=== PATIENT | male | born 1965 | race Hispanic/Latino ===

== ENCOUNTER 2020-05-09 23:52 | Inpatient (IN) | payer MEDICARE, OTHER ==
[~2020-05-09] VITALS: Ht 177.8 cm; Wt 72.6 kg
[2020-05-10] VITALS (11 sets, daily range): BP systolic 84–112; BP diastolic 60–79
[2020-05-10] MEDS ORDERED: CEFTRIAXONE SOD 1 GM/NS 50 ML 50 ML IV ONE (00:15)
[2020-05-10] MEDS ORDERED: SODIUM CHLORIDE 0.9% 500ML 500 ML IV ONE (00:15)
[2020-05-10] MEDS ORDERED: ACETAMINOPHEN 650 MG SUPP PR ONE (00:15)
[2020-05-10 00:39] LABS: BASOPHILS # (AUTO) 0.1 (0.0-0.1); BASOPHILS % 0.4 % (0.0-1.0); EOSINOPHILS % 0.2 % (0.0-6.0); HEMATOCRIT 27.8 % (38.2-49.6); HEMOGLOBIN 8.4 g/dL (14.0-18.0); LYMPHOCYTES # (AUTO) 1.4 (1.0-3.2); LYMPHOCYTES % 11.7 % (18.0-39.1); MEAN CORPUSCULAR HEMOGLOBIN 26.5 pg (28-32); MEAN CORPUSCULAR HGB CONC 30.2 g/dL (31-35); MEAN CORPUSCULAR VOLUME 87.7 fL (81-99); MONOCYTES # (AUTO) 0.5 (0.2-0.8); MONOCYTES % 4.4 % (4.4-11.3); NEUTROPHILS % 82.7 % (38.7-80.0); PLATELET COUNT 466 x10e3/uL (140-360); RED BLOOD COUNT 3.17 x10e6/uL (4.3-5.7); RED CELL DISTRIBUTION WIDTH 14.3 % (11.7-14.4)
--- NOTE | 2020-05-10 00:51 | Emergency Department Note ---
History of Present Illnes History of Present Illness Chief Complaint: COVID PUI History of Present Illness This is a 55 year old male PRESENTS VIA EMS FROM PRISON FOR RESPIRATORY DISTRESS, PER EMS INITIAL OXYGEN SATURATION 84 % ON ROOM AIR, PT 98 5 ON 15 LITER OXYGEN VIA 100% NONREBREATHER ON ARRIVAL PT ALSO REPORTEDLY TESTED POSITIVE FOR COVID 19 ONE MONTH AGO . 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 Any updates have been documented here. 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) Recent Fever: Yes Clinical Suspicion of Infectio: Yes New/Unexplained Change in Ment: No Other Medical History: Diabetes CVA Hypothyroidism ESRD Chronic Kidney Disease Other Medical History DYALYSIS MUSCLE WASTING CHRONIC WOUNDS Social History Unable to obtain PSH: other (PT NONVERBAL DUE TO PREVIOUS CVA) Review of Systems ROS Narrative Unable to obtain ROS: Unable to obtain due to, other (PT NON VERBAL DUE TO PREVIOUS CVA) Physical Exam Related Data Allergies: Coded Allergies: No Known Allergies (Unverified , 05/10/20) Triage Vital Signs Vital Signs Date Time Temp Pulse Resp B/P (MAP) Pulse Ox O2 Delivery O2 Flow Rate FiO2 05/10/20 00:30 102.1 103 28 93/62 98 Nasal Cannula 3.0 Vital signs reviewed: Yes Physical Exam CONSTITUTIONAL Constitutional: Present other (CONTRACTED, IMACIATED) HENT HENT: Present normocephalic, Present atraumatic, Present oropharynx clear/moist, Present nose normal HENT L/R: Present left ext ear normal, Present right ext ear normal EYES Eyes: Reports PERRL, Reports conjunctivae normal NECK Neck: Present ROM normal PULMONARY Pulmonary: Present effort normal, Present other (DECREASED AT BASES BILATERAL) CARDIOVASCULAR Cardiovascular: Present regular rhythm, Present heart sounds normal, Present capillary refill normal, Present tachycardia (102) GASTROINTESTINAL Abdominal: Present soft, Present nontender, Present bowel sounds normal GENITOURINARY Genitourinary: Present exam deferred SKIN Skin: Present warm, Present dry MUSCULOSKELETAL Musculoskeletal: Present other (LEGS CONTRACTED, ) NEUROLOGICAL Neurological: Present alert, Present other (PT ALERT BUT DOES NOT FOLLOW COMMANDS OR ANSWER QUESTIONS) PSYCHOLOGICAL Psychological: Present other (UNABLE TO EVALUATE) Results Laboratory Laboratory Laboratory Tests Test 05/10/20 00:22 Imaging Imaging results reviewed: Yes Impressions EXAMINATION: CHEST SINGLE (PORTABLE) INDICATION: Short of breath, fever, covid + 1 mo agoi COMPARISON: None FINDINGS: TUBES and LINES: Right IJ central venous catheters, tips in the right atrium. LUNGS: Normal lung volumes. Subtle patchy point local haziness in the lower lungs. PLEURA: No pleural effusion or pneumothorax. HEART AND MEDIASTINUM: The cardiomediastinal silhouette is unremarkable. BONES AND SOFT TISSUES: Degenerative changes in the spine and shoulders. Soft tissues are unremarkable. UPPER ABDOMEN: No free air under the diaphragm. IMPRESSION: Subtle patchy opacities in the lower lungs can be due to atelectasis or pneumonia. Signed by: Stephanie Cunningham DO on 05/10/2020 1:26 AM Dictated By: STEPHANIE CUNNINGHAM DO 5 Transcribed By: ESHA on 05/10/20125 COPY TO: HEATHER REINOSO MD~ Procedures 12 Lead ECG Interpretation ECG Interpretation : ECG: ECG 1 Supervisor Denture Department: Interpreted by ED physician Date: May 10, 2020 Time: 00:15 Rhythm: sinus tachycardia Rate: tachycardia BPM: 105 QRS axis: left ST segments normal: Yes T waves normal: Yes Other findings: no other findings Clinical Impression: non-specific ECG Assessment & Plan Medical Decision Making [facility] PT WITH FEVER, COUGH, SOB FROM PRISON WITH REPORTED HYPOXIA AND TESTING POSITIVE FOR COVID 19 LAST MONTH CBC, CMP, EKG, CARDIAC ENZYMES, BLOOD CULTURE, UA, URINE CULTURE, CXR, COVID 19 ORDERED TO EVAL FOR SEPSIS, LEUKOCYTOSIS, VIRAL PNEUMONIA, UTI, MYOCARDIAL INF ARCTION, ELECTROLYTE ABNORMALITY ROCEPHIN 1 GRAM IV ORDERED NS 500 CC BOLUS IV ORDERED TYLENOL SUPP 650 MG RI ORDERED I SPOKE WITH DR HOYOS, LEFT A MESSAGE FOR DR FERRIS AND DR DIAZ Assessment & Plan Final Impression: (1) COVID-19 (2) UTI (urinary tract infection) (3) Fever (4) Pneumonia Depart Disposition: ADMITTED Last Vital Signs Date Time Temp Pulse Resp B/P (MAP) Pulse Ox O2 Delivery O2 Flow Rate FiO2 05/10/20 00:30 102.1 103 28 93/62 98 Nasal Cannula 3.0 Medications in the ED Sodium Chloride 500 ml @ 0 mls/hr Q0M ONCE IV ; Start 05/10/20 at 00:15; Stop 05/10/20 at 00:16; Status DC Acetaminophen 650 mg ONCE ONCE RI ; Start 05/10/20 at 00:15; Stop 05/10/20 at 00:16; Status UNV Ceftriaxone Sodium 50 ml @ 100 mls/hr ONCE ONCE IV ; Start 05/10/20 at 00:15; Stop 05/10/20 at 00:44; Status UNV HEATHER REINOSO MD May 10, 2020 00:51
[2020-05-10 00:58] LABS: ALBUMIN/GLOBULIN RATIO 0.4 (0.8-2.0); ANION GAP 23.6 mmol/L (8-16); CALCIUM 8.4 mg/dL (8.4-10.2); CREATININE, SERUM 5.1 mg/dL (0.72-1.25); POTASSIUM 4.6 mmol/L (3.5-5.1)
[2020-05-10 01:05] LABS: CREATINE KINASE MB 7.9 ng/mL (0-5.0)
--- NOTE | 2020-05-10 01:29 | Diagnostic Imaging Report ---
EXAMINATION: CHEST SINGLE (PORTABLE) INDICATION: Short of breath, fever, covid + 1 mo agoi COMPARISON: None FINDINGS: TUBES and LINES: Right IJ central venous catheters, tips in the right atrium. LUNGS: Normal lung volumes. Subtle patchy point local haziness in the lower lungs. PLEURA: No pleural effusion or pneumothorax. HEART AND MEDIASTINUM: The cardiomediastinal silhouette is unremarkable. BONES AND SOFT TISSUES: Degenerative changes in the spine and shoulders. Soft tissues are unremarkable. UPPER ABDOMEN: No free air under the diaphragm. IMPRESSION: Subtle patchy opacities in the lower lungs can be due to atelectasis or pneumonia. Signed by: Bairon Cunningham DO on 05/10/2020 1:26 AM
[2020-05-10 01:30] LABS: BILIRUBIN,URINE NEGATIVE (NEGATIVE); CLARITY,URINE CLOUDY (CLEAR); COLOR,URINE YELLOW (YELLOW); KETONES,URINE NEGATIVE (NEGATIVE); LEUKOCYTE ESTERASE ,URINE NEGATIVE (NEGATIVE); NITRITE,URINE NEGATIVE (NEGATIVE); PROTEIN,URINE DIPSTICK >=300 (NEGATIVE); URINE UROBILINOGEN 0.2 mg/dL (0.2 - 1)
[2020-05-10] MEDS ORDERED: AZITHROMYCIN 500MG/NS 250 ML 250 ML IV ONE (01:30)
[2020-05-10 01:38] LABS: AMORPHOUS SEDIMENT,URINE MANY (FEW); BACTERIA,URINE FEW /HPF; EPITHELIAL CELLS,URINE FEW /LPF
[2020-05-10] MEDS ORDERED: DEXTROSE 50% SYRINGE 50 ML IV PRN (01:45)
[2020-05-10] MEDS: SODIUM CHLORIDE 0.9% 1000ML 1,000 ML IV ONE ×2 (05:39→05:51)
[2020-05-10] MEDS: INSULIN REGULAR, HUMAN 100 UNIT/1 ML 3ML VIAL SQ SCH ×4 (07:30→20:36)
[2020-05-10 09:25] LABS: CREATINE KINASE MB 15.5 ng/mL (0-5.0)
--- NOTE | 2020-05-10 12:13 | Consultation ---
DATE OF CONSULTATION: 05/10/2020 Wound Consultation HISTORY OF PRESENT ILLNESS: A 55-year-old male patient, longterm resident, followed by , recently admitted to [facility] with COVID. The patient had a prolonged hospitalization for a month. He was treated and sent back to the longterm. He was sent to the hospital with respiratory distress. The patient is confused, bedbound, deconditioned, cognitively impaired. Also, has wound to the knee for which wound consult was called. PAST MEDICAL HISTORY: Hyperlipidemia, hypothyroidism, diabetes mellitus, CVA, chronic kidney disease stage 5, and depression. PHYSICAL EXAMINATION: GENERAL: Cognitively impaired. VITAL SIGNS: Blood pressure 110/70, pulse of 80. HEENT: Normal. Cannot communicate. LUNGS: Diminished at the bases. Response to painful stimuli, awake. ABDOMEN: Soft. EXTREMITIES: Lower extremities contracted. SKIN: Right knee is slightly erythematous and there are stage II ulcers on the left knee. The patient has stage III wound, measures 1.5 x 1.5 cm. Stage III ulcer to the left knee. PLAN: Apply Hydrogel, Mepilex, and we will monitor. Thank you for consultation. MD ENRIQUE Miner/BOBBY /[id number]
[2020-05-10] MEDS ORDERED: TRAMADOL HCL 50 MG TAB PO PRN (13:30)
[2020-05-10] MEDS ORDERED: ONDANSETRON HCL INJ 2MG/ML 2ML 2 MG/ML VIAL IV PRN (13:30)
--- NOTE | 2020-05-10 13:49 | Consultation ---
DATE OF CONSULTATION: 05/10/2020 Pulmonary Critical Care Consultation CHIEF COMPLAINT: History of COVID-19, chronic debility, and chronic wounds. HISTORY OF PRESENT ILLNESS: The patient is a 55-year-old man. He has a history of chronic renal failure stage 5. He also has a history of prior cerebral infarct and hemiparesis. He is a nursing facility resident. He was previously diagnosed with COVID-19 infection. He was subsequently sent from the nursing facility with decreased mobility and worsening wound infections. PAST MEDICAL HISTORY: 1. Prior cerebrovascular accident. 2. Chronic renal failure, stage 5. 3. Hypertension. 4. COVID-19 infection. 5. Hypothyroidism. 6. Diabetes. 7. Prior history of methicillin-resistant Staph aureus. ALLERGIES: THERE ARE NO KNOWN DRUG ALLERGIES. SURGICAL HISTORY: Not obtainable at this time. FAMILY HISTORY: Not obtainable at this time. REVIEW OF SYSTEMS: The patient had more confusion. Apparently, he has been more disoriented. There were no reported fevers. He apparently had some increased dyspnea, but no cough. There was no history of chest pain. He did not have nausea or vomiting. He has some decubitus wounds particularly on the left knee. He has some contractures. PHYSICAL EXAMINATION: VITAL SIGNS: The patient is afebrile. The blood pressure is 112/73, saturation is 100% on 4 L. Pulse is 93. HEENT: No facial swelling or erythema. The oropharynx is normal. LYMPHATIC: No submandibular, cervical, or supraclavicular adenopathy. CARDIAC: Regular rate and rhythm with normal S1, S2. LUNGS: Auscultation of the lungs shows decreased breath sounds at the bases. There is no wheezing. ABDOMEN: Soft, nontender. There is no rebound or guarding. EXTREMITIES: Contractures. There are some decubitus ulcers on the knees. NEUROLOGICAL: The patient is not to be responsive, except to deep stimuli. He has some contractures. LABORATORY DATA: White blood cell count is 12.06 and hemoglobin is 8.4. The platelet count is 466. The BUN to creatinine ratio is 39 to 5.10. Electrolytes are within normal limits. Albumin is 2.0. COVID-19 test is still pending. RADIOGRAPHIC DATA: Chest x-ray shows patchy opacities in the lower lung leon. IMPRESSION: 1. Coronavirus disease-19 and viral pneumonia. 2. Decubitus ulcers, present on admission. 3. Chronic renal failure, stage 5. 4. Anemia, unspecified. 5. Hypoalbuminemia. 6. Prior cerebrovascular accident. 7. Diabetes. 8. Metabolic encephalopathy. PLAN: 1. Continue oxygen. 2. Wound care and physical therapy. 3. Evaluation by Nephrology. 4. Continue to monitor electrolytes, BUN and creatinine. 5. Continue oxygen. 6. Antibiotics. 7. The patient is not a candidate for remdesivir at this time. He requires less than 4 L of oxygen and his duration of illness is unknown. 8. The patient may be a candidate for dexamethasone. Sandeep Jorge MD [facility]/MODL /[id number]
--- NOTE | 2020-05-10 14:14 | NUR ---
Left voicemail to Dr. Galaviz's answering service.
--- NOTE | 2020-05-10 14:16 | NUR ---
Spoke with Dr. Vazquez's answering service and left message for this consult.
--- NOTE | 2020-05-10 14:55 | NUR ---
Spoke with Dr. Galaviz regarding the consult.
--- NOTE | 2020-05-10 15:02 | NUR ---
WOUND CARE CONSULT FOR 55 YO MALE HX OF COVID, ESRD KAUSHAL 10 ON STRICT PUP STATUS AND INTERVENTIONS AND ALTERNATING PRESSURE MATTRESS LABS: WBC-12.06 HGB_8.4 GLUCOSE-161 SKIN ASSESSMENT COMPLETE PATIENT PRESENTS WITH RIGHT UPPER CHEST SITES DAVID LINE AND SUTURE YEAST AND MOISTURE IRRITATION TO BILATERAL GROIN AND PENIS STAGE 1 AREA TO COCCYX RIGHT HIP NEWLY HEALING AREA RIGHT LOWER LEG NEWLY HEALED AREA RIGHT FOOT NEWLY HEALED AREA LEFT KNEE UNSTAGEABLE ULCERATIONS X 3 LEFT LATERAL ANKLE DTI RECOMMENDATIONS: NURSING TO CONTINUE TO MAINTAIN STRICT PUP STATUS AND INTERVENTIONS AND ALTERNATING PRESSURE MATTRESS NURSING TO CONTINUE TO ASSIST PATIENT OUT OF BED FOR MEALS AND MUCH TOLERATED NURSING TO CONTINUE TO ASSIST PATIENT NEEDED WITH MEALS AND NUTRITIONAL SUPPLEMENTS TO ENSURE PROPER REQUIREMENTS FOR HEALING NURSING TO CONTINUE TO OFFLOAD FEET AND HEELS NEEDED WITH PILLOW SUSPENSION WHEN IN BED NURSING TO CLEAN RIGHT UPPER CHEST SITES DAVID LINE AND SUTURE WITH NORMAL SALINE DAILY AND APPLY BACITRACIN OINTMENT AND ALLEVYN FOAM DRESSING NURSING TO CLEAN YEAST AND MOISTURE IRRITATION TO BILATERAL GROIN AND PENIS WITH NORMAL SALINE DAILY AND APPLY REMEDY ANTIFUNGAL BARRIER CREAM NURSING TO CLEAN STAGE 1 AREA TO COCCYX RIGHT HIP NEWLY HEALING AREA RIGHT LOWER LEG NEWLY HEALED AREA RIGHT FOOT NEWLY HEALED AREA LEFT KNEE UNSTAGEABLE ULCERATIONS X 3 LEFT LATERAL ANKLE DTI WITH NORMAL SALINE DAILY AND APPLY VENELEX OINTMENT AND ALLEVYN FOAM DRESSING Addendum: 05/10/20 at 1523 by Aric Jackson RN Amended: Links added.
--- NOTE | 2020-05-10 18:02 | NUR ---
PAST MEDICAL HISTORY: 1. Prior cerebrovascular accident. 2. Chronic renal failure, stage 5. 3. Hypertension. 4. COVID-19 infection. 5. Hypothyroidism. 6. Diabetes. 7. Prior history of methicillin-resistant Staph aureus. ALLERGIES: THERE ARE NO KNOWN DRUG ALLERGIES. SURGICAL HISTORY: Not obtainable at this time. FAMILY HISTORY: Not obtainable at this time.
[2020-05-10 18:21] LABS: CREATINE KINASE MB 13.5 ng/mL (0-5.0)
--- NOTE | 2020-05-10 19:30 | NUR ---
SBAR REPORT RECEIVED FROM DAYSHIFT RN, AOX1, RESPONSE TO PAIN AND VOICE, PATIENT SEEN RESTING COMFORTABLY NO DISTRESS NOTED, VERY CONTRACTED, PU COCCYX COVERED DRSG INTACT, REPOSITIONED AND GIVEN DAVID CARE, PILLOWS PLACED BETWEEN CONTRACTED KNEE TO PREVENT SKIN BREAKDOWN, MULTIPLE WOUNDS NOTED, STRICT PUP, BED IN LOWEST POSITION, CALL LIGHT WITHIN REACH REMAIN ON DROPLET PRECAUTIONS AND NPO UNTIL BEDSIDE SWALLOW COMPLETED
--- NOTE | 2020-05-10 19:55 | NUR ---
Spoke with Bam in [facility] for ordered HD tomorrow.
--- NOTE | 2020-05-10 20:05 | Consultation ---
DATE OF CONSULTATION: 05/10/2020 HISTORY OF PRESENT ILLNESS: This is a 55-year-old gentleman with history of chronic kidney disease. He has stable infarct, hemiparesis from long-term. He was previously diagnosed with COVID-19. He was sent to the nursing facility with decreased mobility. He comes here now with altered mental status and wound is worse, so I was asked to see him. The patient does not really provide any further information. The patient is currently confused. PAST MEDICAL HISTORY: As above. PAST SURGICAL HISTORY: As above. ALLERGIES: NKA. SOCIAL HISTORY: There is no smoking, drug abuse, or alcohol abuse. He is from long-term. FAMILY HISTORY: Otherwise unremarkable. REVIEW OF SYSTEMS: Could not be obtained. LABORATORY DATA: Reviewed. White count 12.6 and hemoglobin of 8. His COVID is positive. PHYSICAL EXAMINATION: GENERAL: He is noncommunicative. VITAL SIGNS: Stable, currently afebrile. HEENT: Not icteric. NECK: Supple. CHEST: Crackles bilateral. HEART: S1 and S2. ABDOMEN: Soft. Bowel sounds present. EXTREMITIES: No edema. SKIN: No rash. IMPRESSION: COVID-19. This patient had COVID-19 more than a month ago. This is a positive PCR and does not reflect active infection at present time. He does not need to be in isolation. Multiple wounds to lower extremities. Continue with local care and debridement. Agree with Razia. History of hyperlipidemia, history of diabetes mellitus, history of cerebrovascular accident, history of chronic kidney disease, history of depression. We will follow. MD NICOLE Haynes/BOBBY /[id number]
--- NOTE | 2020-05-10 20:15 | Consultation ---
DATE OF CONSULTATION: 05/10/2020 I would like to thank, Dr. Barber, for asking me to see Mr. Paz in consultation. REASON FOR CONSULTATION: 1. History of stroke. 2. Contractures of both knees and legs. 3. Wounds. 4. Recent COVID infection. 5. Chronic renal failure. 6. Late effect of stroke. HISTORY OF PRESENT ILLNESS: Mainly from medical records on the chart as the patient is pretty sedated and really was not responsive and when he was he was not cooperative. The patient is a 55-year-old male, history of CVAs in the past. Could not tell me when he was a custodial resident. Has developed contractures to the lower extremities. Came in the hospital after being diagnosed with COVID-19. Also has wounds for which he is being seen by Dr. Garcia, I am being asked to evaluate for rehab needs. PAST MEDICAL HISTORY: Includes a history of old stroke, chronic renal failure, hypertension, COVID-19 infection, diabetes. PAST SURGICAL HISTORY: Not obtainable. FAMILY HISTORY: Not obtainable. ALLERGIES: NO KNOWN DRUG ALLERGIES. SOCIAL HISTORY: Apparently he lives at a custodial, but does not appear that he was ambulatory. He has decubitus wounds to the left knee, but also some difficulty and some contractures. REVIEW OF SYSTEMS: Constitutional review of systems unable to obtain. LABORATORY DATA: White cell count of 12.06, hemoglobin 8.4, hematocrit 27.8, platelets of 466. No new other labs. CK was 369. Chest x-ray from earlier today showed subtle patchy opacities in the lungs due to atelectasis or pneumonia. PHYSICAL EXAMINATION: The patient was sleepy. I tried to wake him up and he was able to squeeze a little bit with his left hand, but really did not move his right on the right-hand side. In fact his right knee is flexed almost to his abdomen. The left knee was little bit less flexing. arms to push me away. On examination, he has established knee flexion contractures, right worse than left. Also has left knee wound. Unable to get any adequate manual muscle testing with the patient at this time. The patient is nonverbal and he is pretty sleepy and looks like he has had muscle wasting in the hands and arms. Muscle examination could not be done. IMPRESSION: 1. History of old strokes. 2. Knee flexion contractures and to a lesser extent all upper extremity contractures. The patient is resistant to stretching or strengthening out. 3. Chronic renal failure. 4. Coronavirus disease-2019 infection. 5. Diabetes. PLAN: At this point, he does not appear to be ambulatory at all now with the contractures that he has. try to stretch him out, it would be somewhat futile as he will probably pull him back right into the same position more importantly because it caused a lot of pain in patient right now try to move it a little bit he just used his left hand to push my hand . We will follow with you. Thank you once again for allowing me to participate in the care of this unfortunate patient. Mac Galaviz DO [facility]/MODL /[id number]
--- NOTE | 2020-05-10 20:26 | Consultation ---
DATE OF CONSULTATION: 05/10/2020 Initial Nephrology Consultation Report REASON FOR CONSULTATION: Chronic kidney disease, stage 5. HISTORY OF PRESENT ILLNESS: Mr. Paz is a 55-year-old male with a history of contractures and chronic wounds. He has had history of diabetes. He has also chronic kidney disease stage 5. He gets maintenance hemodialysis. The patient is nonverbal, so the history is obtained from the patient, medical record, nursing staff and caregivers. He has COVID. PAST MEDICAL HISTORY: The patient has CKD stage 5, hypertension, COVID, and hypothyroidism. PAST SURGICAL HISTORY: Dialysis access placement. REVIEW OF SYSTEMS: As per HPI. PHYSICAL EXAMINATION: VITAL SIGNS: Blood pressure 112/73, pulse 80. GENERAL: The patient is in no acute distress. HEENT: No increased JVD. CARDIOVASCULAR: Regular rate and rhythm. LUNGS: Decreased breath sounds. ABDOMEN: Decreased bowel sounds. EXTREMITIES: The patient's extremities are contractured. The patient has a tunneled dialysis catheter in the right chest wall area. LABORATORY RESULTS: BUN and creatinine 39 and 5.1 respectively. Sodium 138, potassium 4.6, chloride 95, bicarbonate 24, BUN and creatinine 39 and 5.1, hemoglobin and hematocrit 8 and 27 respectively. IMPRESSION AND PLAN: 1. End-stage renal disease. 2. Chronic kidney disease, stage 5. 3. Anemia. 4. COVID infection. 5. Diabetes. 6. Contractures. 7. Wounds. We will have the patient dialyzed tomorrow with 3K 2.5 calcium. We will try to ultrafilter maybe 1-2 L. I will start the patient on some Aranesp for the anemia of chronic disease. I will follow the patient with you. Ather MD DESI Simmons/MODMichael /[id number]
--- NOTE | 2020-05-10 20:30 | NUR ---
INTERNET MANAGER TECH CALLED FROM [facility] CALLED TO VERIFY DIALYSIS ORDER, ADVISED THAT PATIENT DIALYSIS ORDER FOR 05/11/20
[2020-05-10] MEDS ORDERED: AZITHROMYCIN 500MG/SOD CHL 0.9% 250ML BAG IV SCH (22:00)
[2020-05-11] VITALS (11 sets, daily range): BP systolic 75–129; BP diastolic 52–71
--- NOTE | 2020-05-11 00:47 | History and Physical ---
CHIEF COMPLAINT: Altered mental status. HISTORY OF PRESENT ILLNESS: Information currently being obtained is from the son, whom I spoke to on the phone. The patient is very confused on exam, seems to be at his baseline. This is a 55-year-old male, who had a significant past medical history over the last several months, who is currently confused at baseline, bed-bound. According to the son back in September of 2019 this year, the patient went to [facility] and had a "bacteremia" and was treated accordingly with 2 weeks of antibiotics and sent to a half-way facility. While at the half-way, he did develop COVID-19 according to the son. He did have underlying chronic kidney disease and was doing relatively well. According to the son, he has a history of CVA in the past and he believes the left side of his body. The patient apparently was doing well at the half-way facility. According to the son, he was able to talk to him and start doing some ambulation, but they were not able to see him only just through the window. Approximately back in March of 2020, the patient was found to be COVID pneumonia again and was sent to [facility]. According to the son, he was treated accordingly for 2 weeks and was initiated on hemodialysis due to worsening renal function. He was on steroids, he was on antibiotics and vitamins, and he was sent back to the half-way facility. The patient continued to decline over the last several months according to the son. Of note, he had difficulty ambulating. He was not able to even have a conversation with anybody. At this time, he presents from [facility] with underlying shortness of breath and hypotension. According to the son, he has baseline aphasia and he does not speak very well or much. According to the son, he does not walk well as well. The son did report having bacteremia again and was treated accordingly. The patient was seen and evaluated at bedside on the medical floor with the nurse present. Currently, he seems to be at baseline. He was just staring at me, not able to conversates. When I spoke to the son, he states that this is his baseline. REVIEW OF SYSTEMS: Pertinent positive; history of aphasia, shortness of breath. Unable to obtain the rest of the 14-point review of systems due to the patient's underlying mental ability. ALLERGIES: NO KNOWN DRUG ALLERGIES. HOME MEDICATIONS: Not available. PAST MEDICAL HISTORY: He has had a history of CVA. He is bed-bound. He is aphasic. He does not speak very well according to the son. He is now on dialysis. That is all the medical history that the son knows. PAST SURGICAL HISTORY: The patient has a tunneled HD catheter. SOCIAL HISTORY: No drugs. No alcohol. He is at baseline. PHYSICAL EXAMINATION: VITAL SIGNS: Temperature is noted to be 98.1, pulse 93, respiratory rate is 20, blood pressure is 112/73, pulse ox 100% on 4 L nasal cannula. GENERAL: In no acute distress. He is not alert. He is not oriented. He just continues to stare. PULMONARY: Clear to auscultation bilaterally. No wheezing, rales, or rhonchi. No crackles appreciated. CARDIOVASCULAR: Positive S1 and S2. No murmurs, rubs, or gallops appreciated. ABDOMEN: Soft, nondistended, nontender to palpation. Bowel sounds present. MUSCULOSKELETAL: Unable to assess. He is at baseline. NEUROLOGICAL: At baseline. SKIN: Intact, warm to touch. Good cap refill. EXTREMITIES: He is relatively weak. LABORATORY FINDINGS: Show white count is 12, hemoglobin 8.4, hematocrit is 27.8, and platelets of 466. Chemistry; sodium is 138, potassium 4.6, chloride 95, bicarb 24, anion gap of 23, BUN is 39, creatinine is 5.1, glucose is 161. Lactic acid is 1.7. CK is 334. Troponins are negative. Albumin was 2. Urinalysis shows cloudy urine, leukocyte esterase negative, nitrite negative. Coronavirus was positive. MICROBIOLOGY: Blood and urine cultures are pending. IMAGING STUDIES: Chest x-ray show subtle patchy airspace in the lower lungs, can be atelectasis or pneumonia. IMPRESSION: 1. Metabolic encephalopathy, concern for underlying dehydration and acute infection. 2. History of cerebrovascular accident, bed-bound, aphasic at baseline. 3. Coronavirus disease 2019 pneumonia positive. 4. End-stage renal disease, on dialysis. 5. Type 2 diabetes. PLAN: At this time from a CVA standpoint, it seems that the patient is currently at his baseline. I confirmed that with the son when I spoke with him, Mr. Muhammad. He was initiated on dialysis, which we will go ahead and consult with Nephrology. We will get local wound care by Dr. Cox, wound care physician. The patient is on IV antibiotics as well. ID has been consulted. As far the COVID-19, Pulmonary has been consulted. The patient is doing relatively well from that standpoint. The patient will receive dialysis tomorrow. The patient is on IV antibiotic therapy. Resume same home medications. We will encourage oral feeds. I did consult with Physical Medicine Rehab to see if this gentleman can have some ability to ambulate once he is much more appropriate. MD YANN Worthington/MODMichael /[id number]
[2020-05-11 04:14] LABS: ALBUMIN 1.9 g/dL (3.5-5.0); ALBUMIN/GLOBULIN RATIO 0.4 (0.8-2.0); ANION GAP 24.9 mmol/L (8-16); CALCIUM 8.1 mg/dL (8.4-10.2); CREATININE, SERUM 6.91 mg/dL (0.72-1.25); POTASSIUM 4.9 mmol/L (3.5-5.1)
--- NOTE | 2020-05-11 06:45 | NUR ---
COVID POSITIVE PT. SBAR REPORT RECEIVED FROM DEBRA MENDES SHIFT NURSE. PT LYING IN BED IN NO ACUTE DISTRESS. PT ALERTX1. BED ALARM ON AND SIDERAILS UP, PILLOWS FOR POSITIONING. PT PRIMARILY TURKISH SPEAKING. WILL CONTINUE TO MONITOR.
[2020-05-11 07:06] LABS: BASOPHILS # (AUTO) 0.1 (0.0-0.1); BASOPHILS % 0.3 % (0.0-1.0); EOSINOPHILS % 0.1 % (0.0-6.0); HEMATOCRIT 24.4 % (38.2-49.6); HEMOGLOBIN 7.5 g/dL (14.0-18.0); LYMPHOCYTES # (AUTO) 1.9 (1.0-3.2); LYMPHOCYTES % 10.2 % (18.0-39.1); MEAN CORPUSCULAR HGB CONC 30.7 g/dL (31-35); MONOCYTES # (AUTO) 0.9 (0.2-0.8); NEUTROPHILS # (AUTO) 15.4 (2.1-6.9); NEUTROPHILS % 83.6 % (38.7-80.0); PLATELET COUNT 468 x10e3/uL (140-360); RED BLOOD COUNT 2.68 x10e6/uL (4.3-5.7); RED CELL DISTRIBUTION WIDTH 14.8 % (11.7-14.4)
[2020-05-11] MEDS: INSULIN REGULAR, HUMAN 100 UNIT/1 ML 3ML VIAL SQ SCH ×4 (07:30→22:37)
--- NOTE | 2020-05-11 07:55 | NUR ---
TELEPHONE CONSENT FOR HEMODIALYSIS OBTAINED FROM JOYCE SHERIDAN PT'S SON. CONSENT ON CHART
--- NOTE | 2020-05-11 08:45 | Diagnostic Imaging Report ---
TECHNIQUE: Frontal view of the chest. INDICATION: ^viral pneumonia ^[id number] ^[id number] COMPARISON: Prior day. DISCUSSION: Limited evaluation due to portable technique. Lines and hardware: Stable right internal jugular tunneled Solo catheter with tip projecting at the cavoatrial junction. Heart and mediastinum: Stable. Lungs and pleura: Interval increase in streaky opacities at the lung bases, especially the left lung base. Negative for large effusion or pneumothorax. Soft tissues and bones: No acute abnormality. IMPRESSION: Worsening basilar streaky opacities, left greater than right. Findings correct multifocal infection or aspiration. Signed by: Rj Jasso MD on 05/11/2020 8:42 AM
[2020-05-11] MEDS: BACITRACIN ZINC 15 GM OINT TOP SCH (09:00)
[2020-05-11] MEDS: BALSAM PERU/CASTOR OIL 60 GM OINT...G. TP SCH (09:00)
[2020-05-11] MEDS: EPOETIN ALFA-EPBX 10,000 UNIT/ML VIAL SC SCH (12:00)
[2020-05-11] MEDS ORDERED: HEPARIN SOD (PORCINE) 1000 UNIT/ML SDV IV PRN (13:00)
[2020-05-11] MEDS ORDERED: SODIUM CHLORIDE 0.9% 1000ML 2,000 ML IV PRN (13:00)
--- NOTE | 2020-05-11 15:15 | NUR ---
patient seen and examined chart reviewed. Parent this is infectious disease progress note May 11, 2020. Review of systems otherwise unremarkable. physical examination alert oriented vitals stable afebrile HEENT normocephalic neck supple chest crackles bilateral heart [id number] abdomen soft EXAMINATION: GENERAL: He is noncommunicative. VITAL SIGNS: Stable, currently afebrile. HEENT: Not icteric. NECK: Supple. CHEST: Crackles bilateral. HEART: S1 and S2. ABDOMEN: Soft. Bowel sounds present. EXTREMITIES: No edema. SKIN: No rash. IMPRESSION: COVID-19. This patient had COVID-19 more than a month ago. This is a positive PCR and does not reflect active infection at present time. He does not need to be in isolation. Multiple wounds to lower extremities. Continue with local care and debridement. Agree with Nolanhinavneet. History of hyperlipidemia, history of diabetes mellitus, history of cerebrovascular accident, history of chronic kidney disease, history of depression. We will follow.
--- NOTE | 2020-05-11 16:26 | NUR ---
Patient is at his baseline functional level and skilled PT services not indicated due to poor rehab potential. Thank you Addendum: 05/11/20 at 1626 by Alex dominguez PT Amended: Links added.
--- NOTE | 2020-05-11 17:06 | Progress Note ---
DATE: 05/11/2020 SUBJECTIVE: The patient is currently on 2 L of oxygen. He has no fevers. PHYSICAL EXAMINATION: VITAL SIGNS: Blood pressure is 128/69 and saturation is 98%. HEENT: Shows no facial swelling or erythema. CARDIAC: Reveals regular rate and rhythm with normal S1 and S2. LUNGS: Auscultation of lungs reveals rhonchorous breath sounds bilaterally. There is no wheezing. ABDOMEN: Soft and nontender. There is no rebound or guarding. EXTREMITIES: Shows no leg edema or calf tenderness. There is a wound VAC on the elbow. IMPRESSION: 1. Prior cerebrovascular accident. 2. COVID-19 and viral pneumonia. 3. Metabolic encephalopathy. 4. Decubitus ulcers, present on admission. 5. End-stage renal disease. PLAN: 1. Continue oxygen. 2. Continue dialysis. 3. Continue wound care. MD VALENTINA Alberto/BOBBY /[id number]
--- NOTE | 2020-05-11 18:47 | Progress Note ---
DATE: 05/11/2020 Renal Progress Note SUBJECTIVE: The patient is really nonverbal. He is in a contracted state. Dialysis was done earlier today. PHYSICAL EXAMINATION: VITAL SIGNS: Blood pressure 129/59 and pulse 91. GENERAL: The patient is contracted. He is really nonverbal. CARDIOVASCULAR: Regular rate and rhythm. LUNGS: Decreased breath sounds at bases bilaterally. ABDOMEN: Positive bowel sounds. EXTREMITIES: No edema. The patient is contracted. LABORATORY RESULTS: Sodium 141, potassium 4.9, chloride 99, bicarbonate 22, BUN and creatinine 57 and 7 respectively. Hematocrit is 24 and hemoglobin is 7.5. IMPRESSION/PLAN: 1. Chronic kidney disease, stage 5. 2. End-stage renal disease. 3. Anemia of chronic disease. 4. Diabetes. 5. COVID-19 infection. 6. Pneumonia. PLAN: At the present, the patient underwent dialysis today. We dialyzed him for 3-1/2 hours, 2 potassium, 2.5 calcium, blood 400. We did not ultrafilter any fluids because he became hypotensive, but he tolerated the dialysis well. The patient's prognosis seems somewhat relatively guarded. The patient also has some wounds, which are being addressed. Ather MD DESI Simmons/BOBBY /[id number]
--- NOTE | 2020-05-11 19:20 | NUR ---
WALKING ROUNDS PERFORMED, RECEIVED PT LAYING SEMI FOWLERS IN BED, AAOX3, RR EVEN AND NON-LABORED, ON ROOM AIR. PT BLE AND BUE CONTRACTED. LEFT PT LAYING SEMI FOWLERS IN BED, BED IN LOW LOCKED POSITION, SIDE RAILS UPX3, CALL LIGHT AND PHONE WITHIN REACH.
--- NOTE | 2020-05-11 20:48 | Consultation ---
DATE OF CONSULTATION: 05/11/2020 REASON FOR CONSULTATION: Cardiac clearance. CHIEF COMPLAINT: Hypoxic respiratory failure. HISTORY OF PRESENT ILLNESS: This is a 55-year-old male with history of CVA in 2017, end-stage renal disease on HD therapy, diabetes, hypertension, hyperlipidemia, hypothyroidism. Of note, information was obtained from , Mrs. Cindi Paz, phone #[phone]. She reports that the patient earlier this year became weak, fatigued, unable to do any activities, was taken to [facility], was treated for infection of some sort, was then transferred to the alf where he was there for rehab and continuation of care in which apparently he obtained COVID with subsequently a transfer back to [facility] where he received therapy and transfer back to alf. However, apparently, the patient was noted to be hypoxic with O2 saturation in the 80s, was then transferred to [facility] for further evaluation. Cardiology consulted for clearance for upcoming PEG placement. The patient is seen in room. The patient is unable to give any information. He is nonverbal. Does not follow any commands. PAST MEDICAL HISTORY: CVA in 2017, end-stage renal disease on HD therapy, diabetes, hypertension, hyperlipidemia, hypothyroidism. PAST SURGICAL HISTORY: HD tunneled catheter in 2019, PEG tube in 2016. SOCIAL HISTORY: He is . There is no history of alcohol or tobacco use. FAMILY HISTORY: No history of CAD, stroke, cancer. ALLERGIES: NO KNOWN ALLERGIES. REVIEW OF SYSTEMS: Unable to obtain due to the patient's altered mental status and nonverbal communication. PHYSICAL EXAMINATION: VITAL SIGNS: Height 70 inches, weight 160 pounds, temperature 98.5, pulse 91, respiratory rate 20, blood pressure 129/69. GENERAL: A very debilitated, frail, chronically ill individual. SKIN: No rashes. Positive lower extremity sores. HEENT: Normocephalic. Pupils are equal and reactive. Extraocular movements intact. NECK: No JVD. No carotid bruit. HEART: Regular rate and rhythm. LUNGS: Bilateral crackles noted throughout. ABDOMEN: Soft, nontender, and nondistended. No organomegaly noted. MUSCULOSKELETAL: Generalized muscle weakness and contractures of the lower extremities. VASCULAR: +2 radial pulses bilaterally. +1 DP/PT pulses bilateral with lower extremities sores noted. NEUROLOGIC: Unable to obtain. The patient is nonverbal and does not follow commands. LABORATORY DATA: Sodium 141, potassium 4.9, chloride 99. BUN 57, creatinine 6.9, glucose 159. Troponin I 0.04, 0.06, 0.05. White count 18, hemoglobin 7.5, hematocrit 24, platelets 468. COVID PCR positive. Chest x-ray showing patchy opacities. EKG showing sinus tach 105 with left axis deviation. ASSESSMENT AND PLAN: 1. Coronavirus disease 2019 pneumonia. 2. Hypoxic respiratory failure. 3. History of cerebrovascular accident. 4. End-stage renal disease. 5. Diabetes. 6. Anemia. 7. Debility. 8. Protein malnourishment. 9. Cardiac clearance requested. PLAN: 1. The patient presents with hypoxic event. The patient noted with COVID-19 pneumonia. Cardiology consulted for cardiac clearance for PEG placement. 2. Discussed at length with over the phone. Given the patient's needs of nutrition, unable to eat. We will go ahead and clear the patient for from cardiac standpoint. However, risks are 0. Discussed with and she is understanding the risks and accepting risks. 3. We will do an echo to evaluate heart structurally. Thank you very much for this consult. Seen and examined Agree with note Dictated by Ken Boss NP Alfredo Mondragon MD DC/BOBBY /[id number] PAULINA
[2020-05-11] MEDS ORDERED: CEFTRIAXONE SOD 1 GRAM/0.9% SOD CHL 50ML BAG IV SCH (21:00)
--- NOTE | 2020-05-11 21:00 | NUR ---
IV TO (L) ARM FLUSHES BUT PT BENDS ELBOW AND OCCLUDES IV FLOW. NEW IV STARTED TO (R) FA 20G, FLUSHES WITHOUT DIFFICULTY OR PAIN, BLOOD RETURN NOTED. AT 2104 NEW IV STARTED TO (L) FA 20G. FLUSHES WITHOUT DIFFICULTY OR PAIN, BLOOD RETURN NOTED.
[2020-05-11] MEDS ORDERED: SODIUM CHLORIDE 0.9% 250ML 250 ML ONE (21:30)
[2020-05-11] MEDS: PERIPHERAL TPN FORMULA 1 BAG IV SCH (21:50)
[2020-05-11] MEDS: AZITHROMYCIN 500MG/NS 250 ML 250 ML IV SCH (21:50)
--- NOTE | 2020-05-11 22:29 | Consultation ---
DATE OF CONSULTATION: 05/11/2020 HISTORY OF PRESENT ILLNESS: The patient is a 55-year-old gentleman, who has history of COVID pneumonia back in March, eventually end up with renal failure, on dialysis, was bed-bound, was admitted to the hospital because of mental status changes. GI consult is obtained for possibility of PEG placement because apparently he failed swallow evaluations. PAST MEDICAL PROBLEM: Significant for history of CVA, bed-bound, aphasic, and again COVID pneumonia in March. Renal failure, status post hemodialysis catheter placement. ALLERGIES: NONE. CURRENT MEDICATIONS: Including insulin, azithromycin, heparin, tramadol, Zofran. SOCIAL HISTORY: No alcohol use. FAMILY HISTORY: Noncontributory. REVIEW OF SYSTEMS: Unobtainable. PHYSICAL EXAMINATION: lying in bed, not in acute distress. VITAL SIGNS: Afebrile. HEAD, EYES, EARS, NOSE, AND THROAT: Normocephalic, atraumatic. Sclera is anicteric. NECK: Supple. ABDOMEN: Soft. . EXTREMITIES: No clubbing. LAB VALUES: Significant for WBC today is 18.36, hemoglobin is 7.5, dropped from 8.4 on admission yesterday. BUN of 57, creatinine 6.91. IMPRESSION: 1. Oropharyngeal dysphagia. The patient will need to have a PEG tube for nutritional support. 2. History of cerebrovascular accident. 3. Metabolic encephalopathy. 4. COVID positive. RECOMMENDATIONS: He is to be on TPN for now. We will do EGD with PEG in about 10 days. This has been discussed with Dr. Barber and as well as [facility]. Ahsan Bernabe MD DHD/MODL /[id number] cc: MD Loan Call MD
[2020-05-12] VITALS (8 sets, daily range): BP systolic 99–118; BP diastolic 59–75
--- NOTE | 2020-05-12 03:29 | Progress Note ---
DATE: 05/11/2020 Medicine Progress Note SUBJECTIVE: The patient was seen and evaluated early this afternoon with nursing staff present throughout the entire conversation. The patient had hemodialysis during my evaluation. I spoke with speech therapy. They are recommending a PEG tube placement. IV PPN has been initiated. PHYSICAL EXAMINATION: VITAL SIGNS: Temperature is 98.5, pulse 91, respiratory rate 20, blood pressure is 129/69, and pulse ox 98%, he is on 2 L nasal cannula. GENERAL: He is not alert or oriented. He is awake, but not even talking to us. PULMONARY: Clear to auscultation bilaterally. No wheezing, rales, or rhonchi appreciated. CARDIOVASCULAR: Positive S1, S2. No murmurs, rubs, or gallops appreciated. ABDOMEN: Soft, nondistended, nontender to palpation. Bowel sounds present. MUSCULOSKELETAL: Unable to assess. He is not cooperative. He is just staring. NEUROLOGIC: Unable to assess. LABORATORY DATA: Show white count 18.3, hemoglobin 7.5, hematocrit is 24, and platelets of 468. Chemistry; sodium 141, potassium 4.9, chloride 99, bicarb 22, anion gap of 24, BUN is 57, creatinine is 6.9, glucose is 159. LFTs noted. Blood cultures, no growth. Urine cultures, no growth. IMAGING STUDIES: Brain MRI ordered, which is pending. IMPRESSION: 1. Metabolic encephalopathy, presumed to be from underlying dehydration and acute infection. 2. History of cerebrovascular accident in the past, bed-bound, aphasic at baseline. 3. Coronavirus-19 pneumonia. 4. End-stage renal disease, on hemodialysis. 5. Type 2 diabetes. 6. Dysphagia, unsafe. PLAN: At this time, the patient still seemed to be very confused on examination, in fact he is not even talking. He continues to stare. MRI of the brain ordered. Neurology consultation has been placed. The patient does have a history of CVA in the past. Continue with ID recommendations, concerns for COVID-19 pneumonia. The patient had dialysis today. He is on PPN as scheduled. Continue with insulin sliding scale, Accu-Cheks, A1c. Plan of care discussed with the patient's son, Soham, by phone. When I discussed this with him, his father did have a PEG tube in the past, as he will be willing to sign consent via PEG tube at this state. He has noticed that his father has declined over the last several weeks. The patient is not alert and did not even attempt any feeds. We may need to retry a swallow eval at a later date. Possibly discharge tomorrow. MD YANN Worthington/BOBBY /[id number]
[2020-05-12 06:17] LABS: BASOPHILS % 0.2 % (0.0-1.0); EOSINOPHILS % 0.1 % (0.0-6.0); LYMPHOCYTES # (AUTO) 1.2 (1.0-3.2); LYMPHOCYTES % 8.3 % (18.0-39.1); MEAN CORPUSCULAR HEMOGLOBIN 27.5 pg (28-32); MEAN CORPUSCULAR HGB CONC 30.4 g/dL (31-35); MEAN CORPUSCULAR VOLUME 90.2 fL (81-99); MONOCYTES # (AUTO) 0.9 (0.2-0.8); MONOCYTES % 6.1 % (4.4-11.3); NEUTROPHILS # (AUTO) 12.4 (2.1-6.9); NEUTROPHILS % 84.4 % (38.7-80.0); PLATELET COUNT 389 x10e3/uL (140-360); RED BLOOD COUNT 2.55 x10e6/uL (4.3-5.7); RED CELL DISTRIBUTION WIDTH 14.7 % (11.7-14.4)
[2020-05-12 06:39] LABS: ANION GAP 17.9 mmol/L (8-16); CALCIUM 7.8 mg/dL (8.4-10.2); CREATININE, SERUM 4.07 mg/dL (0.72-1.25); POTASSIUM 3.9 mmol/L (3.5-5.1)
--- NOTE | 2020-05-12 06:48 | NUR ---
COVID POSITIVE PATIENT. SBAR REPORT RECEIVED FROM Tova GARBER RN, PM SHIFT. PT WAS RECEIVED RESTING IN BED CONTRACTED IN NO ACUTE DISTRESS WEDGE AND PILLOWS FOR POSITIONING IN PLACE. PROTECTIVE BOOTS FOR DECUBITUS ULCER PREVENTION IN PLACE. PT IS UNABLE TO MAKE NEEDS KNOWN. BED RAILS UP BED ALARM ON. CHECK PATIENT'S DIAPER AND NO ISSUES. WILL CONTINUE TO MONITOR.
--- NOTE | 2020-05-12 07:25 | Diagnostic Imaging Report ---
EXAMINATION: MRI of the brain without contrast. HISTORY: 55 year old male with alteration of consciousness, Covid-19 pneumonia, ESRD COMPARISON: None. TECHNIQUE: Sagittal T2; axial DWI, T2, FLAIR, T1-IR, T2 gradient echo; coronal FLAIR. FINDINGS: Parenchyma: 1. Severe confluent supratentorial white matter (including the internal and external capsules), along the corticospinal tracts, cerebral peduncles pontomesencephalic junctions and middle cerebellar peduncles T2 and FLAIR hyperintensities, most likely related to chronic small vessel ischemic changes, most likely superimposed metabolic/inflammatory infectious component. 2. Multiple chronic lacunar infarcts in the bilateral orozco radiata/centrum semiovale, cloudy, lentiform nuclei, thalami, bilateral paramedian mason and left ventral medulla. 3. Small GRE hypointense foci in the thalami, lentiform nuclei and mason, most likely corresponding to microhemorrhages, from chronic hypertension. 4. No mass, acute hemorrhage, acute cortical infarct. Skull: Unremarkable. Vessels: Expected flow voids present in the major arteries and dural sinuses. Extra-axial spaces: No abnormal signal intensity or mass effect. Brain volume: Moderate atrophy, more than what is suspected for patient's age. Ventricles: No hydrocephalus or displacement. Extraocular dilatation. Foramen magnum: Unremarkable. Sella: Unremarkable. Paranasal / mastoid sinuses: No significant inflammatory disease. IMPRESSION: 1. No acute infarcts. 2. Severe confluent white matter hyperintensities, likely chronic microvascular ischemic changes, however superimposed metabolic/infectious process cannot be excluded. 3. Multiple chronic lacunar infarcts as above. 4. GRE hypointense foci, likely microhemorrhages from chronic hypertension. Signed by: Dr. Birgit Pearl M.D. on 05/12/2020 7:22 AM
[2020-05-12] MEDS: INSULIN REGULAR, HUMAN 100 UNIT/1 ML 3ML VIAL SQ SCH ×5 (07:30→22:43)
--- NOTE | 2020-05-12 08:13 | NUR ---
ST NOTE: Pt not alert enough to participate in PO trials, he now has TPN for nutrition/hydration, peg tube placement on hold secondary to COVID positive. Will continue to follow. Handoff to DERIAN West
[2020-05-12] MEDS: BALSAM PERU/CASTOR OIL 60 GM OINT...G. TP SCH (09:00)
[2020-05-12] MEDS: BACITRACIN ZINC 15 GM OINT TOP SCH (09:00)
[2020-05-12 15:59] LABS: INR 1.24; PROTHROMBIN TIME 16.3 seconds (11.9-14.5)
[2020-05-12] MEDS: ACETAMINOPHEN 650 MG SUPP PR PRN (16:41)
[2020-05-12] MEDS: MEROPENEM 500MG/ NS 50ML 50 ML IV SCH (17:37)
--- NOTE | 2020-05-12 18:40 | Progress Note ---
DATE: 05/12/2020 SUBJECTIVE: The patient is afebrile. He did have a fever to 101 earlier. He remains on 4 L of oxygen. PHYSICAL EXAMINATION: VITAL SIGNS: The blood pressure is 107/71, pulse is 100, and T-max is 102. HEENT: Shows no facial swelling or erythema. LYMPHATIC: Shows no submandibular, cervical, or supraclavicular adenopathy. CARDIAC: Reveals regular rate and rhythm with normal S1 and S2. LUNGS: Auscultation of lungs rhonchorous breath sounds bilaterally. There is no wheezing. ABDOMEN: Soft and nontender. There is no rebound or guarding. EXTREMITIES: Shows no leg edema or calf tenderness. There is no cyanosis or clubbing. SKIN: Shows no rashes. NEUROLOGICAL: Shows no focal abnormalities. LABORATORY DATA: White blood cell count is 14.6 and the hemoglobin is 7. The platelet count is 389. The BUN to creatinine ratio is 38 to 4.07 and the other electrolytes are within normal limits. The glucose is 230 to 290. IMPRESSION: 1. COVID-19 and viral pneumonia. 2. Prior cerebrovascular accident. 3. Metabolic encephalopathy. 4. Decubitus ulcers, present on admission. 5. End-stage renal disease. PLAN: 1. Continue oxygen. 2. Continue current antibiotics. 3. Repeat chest x-ray. 4. Wound care. Sandeep Jorge MD LM/BOBBY /[id number]
--- NOTE | 2020-05-12 18:42 | NUR ---
PT PULLED OUT PEG TUBE. DRY DRESSING APPLIED. CALL PLACED TO DR. GARCIA OFFICE/CELL NUMBER. LEFT DETAILED VM FOR A RETURN CALL. Addendum: 05/12/20 at 1843 by Jenna Luther RN PLEASE OMIT NOTE. WRONG PATIENT
--- NOTE | 2020-05-12 18:49 | Progress Note ---
DATE: 05/12/2020 SUBJECTIVE: Mr. Paz is lying in bed comfortably. REVIEW OF SYSTEMS: Otherwise, HEENT: Negative. PULMONARY: Negative. CARDIAC: Negative. PHYSICAL EXAMINATION: GENERAL: He is currently alert and oriented. VITAL SIGNS: Stable, currently afebrile. HEENT: He is not icteric. NECK: Supple. CHEST: Clear. HEART: S1 and S2. No murmur. ABDOMEN: Soft. IMPRESSION: 1. COVID-19 more than a month ago. No need for treatment and isolation. 2. Multiple wound. Continue local care. Continue with debridement. Continue supportive care. 3. Dysphagia. PEG tube placement per GI. 4. History of cerebrovascular accident. History of encephalopathy and debility. Continue PT/OT. We will discontinue azithromycin. 5. Leukocytosis. 6. Aspiration pneumonia, currently on meropenem. 7. Azithromycin was started by GI for aspiration. Can discontinue when PEG tube was placed. MD NICOLE Haynes/BOBBY /[id number]
--- NOTE | 2020-05-12 19:04 | Progress Note ---
DATE: 05/12/2020 Renal Progress Note SUBJECTIVE: Events over the past 24 hours have been noted. The patient remains confused. PHYSICAL EXAMINATION: VITAL SIGNS: Blood pressure 107/71, pulse 100, temperature 101.1. GENERAL: The patient is in a contracted state. He is kind of nonverbal. CARDIOVASCULAR: Tachycardia. LUNGS: Decreased breath sounds at the bases bilaterally. ABDOMEN: Positive bowel sounds. EXTREMITIES: No edema. The patient has a right chest wall tunneled dialysis catheter. LABORATORY RESULTS: Sodium 139, potassium 3.9, chloride 100, bicarbonate 25, BUN and creatinine 38 and 4.0. Hemoglobin and hematocrit 7 and 23 respectively. IMPRESSION: 1. Chronic kidney disease, stage 5. 2. Anemia of chronic disease. 3. Diabetes. 4. COVID-19 infection. 5. COVID pneumonia. PLAN: The patient underwent dialysis yesterday. The patient will be scheduled for dialysis tomorrow. At the present time, the patient is euvolemic. The patient's hemoglobin seems to be dropping, it was 8.4 on admission and now it is 7.0. The patient is getting Epogen. I think I will order maybe 2 units of packed red blood cells for transfusion with dialysis tomorrow. From nutritional, the patient is receiving TPN at this point. If the hemoglobin continues to drop, we will order a blood transfusion. Continue the Epogen dose. The patient is getting TPN. The patient is due for dialysis tomorrow. Ather MD DESI Simmons/BOBBY /[id number]
--- NOTE | 2020-05-12 19:10 | NUR ---
WALKING ROUNDS PERFORMED, RECEIVED PT LAYING SEMI FOWLERS IN BED, AAOX1-2 UNABLE TO RESPOND, RR EVEN AND NON-LABORED, ON ROOM AIR. PT BLE CONTRACTED. LEFT PT LAYING SEMI FOWLERS IN BED, BED IN LOW LOCKED POSITION, SIDE RAILS UPX3, CALL LIGHT AND PHONE WITHIN REACH.
[2020-05-12] MEDS: ATORVASTATIN 20 MG TAB PO SCH (19:52)
[2020-05-12] MEDS: AZITHROMYCIN 500MG/NS 250 ML 250 ML IV SCH (21:07)
[2020-05-12] MEDS: PERIPHERAL TPN FORMULA 1 BAG IV SCH (21:08)
--- NOTE | 2020-05-12 23:56 | NUR ---
DURING SHIFT CHANGE RECEIVED IN REPORT THAT PPN WAS TO BE PLACED ON HOLD FOR PLACEMENT OF IJ ON 05/13. NO ORDER PLACED IN COMPUTER TO HOLD PPN CALL PLACED TO MD HOOYS AND SPOKE WITH PHYSICIAN . WAS ORDERED NOT TO HOLD PPN.
[2020-05-13] VITALS (10 sets, daily range): BP systolic 111–176; BP diastolic 64–88
--- NOTE | 2020-05-13 00:50 | Consultation ---
DATE OF CONSULTATION: 05/12/2020 Neurology Consultation REASON FOR CONSULTATION: Weakness and delirium. HISTORY OF PRESENT ILLNESS: The patient is a 55-year-old male with history of renal failure stage 5, history of stroke in the past with hemiparesis, lives in [place] [facility]. Previous diagnosis of COVID-19. He was sent here for worsening debility and wound infection evaluation. He has known history of past strokes, diabetes, and hypertension. He has dialysis catheter placed and PEG tube placed as well. SOCIAL HISTORY: He is . No tobacco or alcohol use. He does have a history of coronary artery disease. REVIEW OF SYSTEMS: It cannot be obtained from the patient due to clinical status. PHYSICAL EXAMINATION: VITAL SIGNS: The patient is febrile, 102.5 fever, heart rate is 101, and blood pressure 115/73. GENERAL: He is lying in bed quietly. HEENT: His extraocular muscles are intact. Normocephalic. NECK: Supple. ABDOMEN: Soft. CARDIOVASCULAR: Regular rate and rhythm. PULMONARY: Mildly rhonchus. There are no bruits on the carotid exam. Mildly rhonchus lungs and crackles noted in the lower bases. MUSCULOSKELETAL: Overall he has diffuse weakness and contractions in the lower extremities. He is aphasic. He does not follow commands at this time. He has spasticity in the upper and lower extremities. He does seem to respond to noxious stimulus in all four extremities. So sensory is intact in this regard. Does blink to threat. ASSESSMENT/PLAN: I am seeing the patient for severe encephalopathy, delirium, and severe spastic weakness. His MRI shows no acute infarcts with severe diffuse white matter changes throughout, multiple lacunar infarcts in the past as well as microhemorrhages on the MRI, but nothing acute. It is likely that we are dealing with acute on chronic neurovascular decline secondary to physiological stress. Specifically, he secondary to physiological stress making his old strokes worse. Not sure what his functional baseline status is, so, we will get an evaluation by PT, OT, and speech therapy as well as consult with his outpatient care providers, see how he is functional at home. As an outpatient, we can initiate Botox for spasticity treatment and contractures. We are going to continue the patient on stroke preventative with aspirin and atorvastatin, get a lipid panel, but he did have an acute stroke, so no more than that is necessary at this time. He has minimal hemorrhagic changes in the brain, , started him on aspirin 325 daily. MD ANALI ROSE/BOBBY /[id number]
--- NOTE | 2020-05-13 02:21 | Progress Note ---
DATE: 05/12/2020 Medicine Progress Note SUBJECTIVE: The patient is still minimally responsive on examination. He is febrile. He is scheduled for central line placement tomorrow. He is on IV PPN for now. PHYSICAL EXAMINATION: VITAL SIGNS: Temperature is 99.7, but T-max is 102.5, pulse 100, respiratory rate is 24, blood pressure 107/71, pulse ox 98% on 3 L nasal cannula. GENERAL: Still not responsive on examination, seems to be at baseline. PULMONARY: Clear to auscultation bilaterally. No wheezing, rales, or rhonchi. No crackles appreciated. CARDIOVASCULAR: Positive S1, S2. No murmurs, rubs, or gallops appreciated. ABDOMEN: Soft, nondistended, nontender to palpation. Bowel sounds present. MUSCULOSKELETAL: Unable to assess. NEUROLOGIC: Unable to assess. SKIN: Intact. Warm to touch. LABORATORY DATA: Show white count 14, hemoglobin 7, hematocrit is 23, platelets of 389. PT 16, INR 1.24. Chemistry; sodium 139, potassium 3.9, chloride 100, bicarb 25, anion gap of 17, BUN is 38, creatinine is 4.07, glucose is 233, calcium is 7.8. Urine culture shows Enterococcus, but is less than 10,000 colonies. Blood cultures, no growth to-date. IMAGING STUDIES: MRI of the brain shows no acute infarct. Severe confluent white matter hyperdensities, likely chronic microvascular ischemic change. However, superimposed metabolic infectious process cannot be excluded. Multiple chronic lacunar infarcts as above. There are some hypointense foci likely microhemorrhages from chronic hypertension. IMPRESSION: 1. Metabolic encephalopathy presumed to be from underlying dehydration, acute infection. 2. History of cerebrovascular accident in the past, bed-bound, aphasic at baseline. 3. Coronavirus-19, pneumonia, viral pneumonia. 4. End-stage renal disease, on hemodialysis. 5. Type 2 diabetes. 6. Dysphagia. PLAN: At this time, MRI of the brain shows no acute findings. I do have Neurology consulted, awaiting for their recommendations. May need an EEG. Continue with IV antibiotic therapy, being managed by ID. Continues to have fever, not sure if that is from the virus or an infectious etiology versus a drug reaction. He is receiving dialysis by Nephrology. As for his dysphagia, we are not going to be able to do a PEG tube at this time. We are going to continue with IV PPN convert IV TPN and a central line has been ordered for tomorrow. He is anemic. Hemoglobin is 7. We will monitor that very closely. Get a.m. labs. Discussed plan of care with nursing staff. MD YANN Worthington/BOBBY /[id number]
[2020-05-13 07:33] LABS: BASOPHILS % 0.2 % (0.0-1.0); EOSINOPHILS % 0.3 % (0.0-6.0); LYMPHOCYTES # (AUTO) 1.4 (1.0-3.2); LYMPHOCYTES % 11.6 % (18.0-39.1); MEAN CORPUSCULAR HEMOGLOBIN 26.9 pg (28-32); MEAN CORPUSCULAR HGB CONC 30.4 g/dL (31-35); MEAN CORPUSCULAR VOLUME 88.5 fL (81-99); MONOCYTES # (AUTO) 0.7 (0.2-0.8); MONOCYTES % 5.7 % (4.4-11.3); NEUTROPHILS # (AUTO) 10.1 (2.1-6.9); NEUTROPHILS % 81.6 % (38.7-80.0); PLATELET COUNT 328 x10e3/uL (140-360); RED BLOOD COUNT 2.34 x10e6/uL (4.3-5.7); RED CELL DISTRIBUTION WIDTH 14.8 % (11.7-14.4)
[2020-05-13 07:41] LABS: HEMOGLOBIN 6.3 g/dL (14.0-18.0)
[2020-05-13 07:42] LABS: HEMATOCRIT 20.7 % (38.2-49.6)
[2020-05-13 07:50] LABS: INR 1.26; PROTHROMBIN TIME 16.5 seconds (11.9-14.5)
[2020-05-13 08:00] LABS: ALBUMIN 1.5 g/dL (3.5-5.0); ALBUMIN/GLOBULIN RATIO 0.3 (0.8-2.0); ANION GAP 21.9 mmol/L (8-16); CALCIUM 7.9 mg/dL (8.4-10.2); CREATININE, SERUM 5.26 mg/dL (0.72-1.25); POTASSIUM 3.9 mmol/L (3.5-5.1)
[2020-05-13] MEDS ORDERED: SODIUM CHLORIDE 0.9% 250ML 250 ML IV ONE ×2 (08:00→13:20)
--- NOTE | 2020-05-13 08:57 | Diagnostic Imaging Report ---
EXAMINATION: CHEST SINGLE (PORTABLE) INDICATION: Respiratory failure COMPARISON: Chest radiograph 05/11/2020 FINDINGS: LINES/TUBES:Support lines and tubes unchanged. LUNGS:Unchanged bilateral patchy opacities. PLEURA:No pleural effusion or pneumothorax. MEDIASTINUM:The cardiomediastinal silhouette appears unchanged in size and shape. BONES/SOFT TISSUES:No acute osseous injury. ABDOMEN:No free air under the diaphragm. IMPRESSION: No significant interval change. Signed by: Love Tobar MD on 05/13/2020 8:54 AM
[2020-05-13] MEDS: ASPIRIN 325 MG TAB PO SCH (09:00)
[2020-05-13] MEDS: ACETAMINOPHEN 650 MG SUPP PR PRN ×2 (09:07→18:40)
[2020-05-13] MEDS: INSULIN REGULAR, HUMAN 100 UNIT/1 ML 3ML VIAL SQ SCH ×5 (09:35→21:30)
--- NOTE | 2020-05-13 11:00 | NUR ---
DISCUSSED PT IN MDR. PT TO BE EVAL'D BY PALLIATIVE. CM WILL WAIT UNTIL PALLIATIVE SEES PT BEFORE STARTING LTAC
--- NOTE | 2020-05-13 11:29 | NUR ---
ST Note: Discussed case with DERIAN West. Pt continues with decreased alertness and is not appropriate for po intake. Will f/u as indicated.
[2020-05-13] MEDS: EPOETIN ALFA-EPBX 10,000 UNIT/ML VIAL SC SCH (12:00)
--- NOTE | 2020-05-13 14:17 | NUR ---
infectious disease per his note patient seen and examined chart reviewed Patient with no new complaints Still shortness of breath and some cough but overall better Review of system is just weak Seen and examined The patient is still minimally responsive on examination. He is febrile. He is scheduled for central line placement tomorrow. He is on IV PPN for now. PHYSICAL EXAMINATION: VITAL SIGNS: Temperature is 99.7, but T-max is 102.5, pulse 100, respiratory rate is 24, blood pressure 107/71, pulse ox 98% on 3 L nasal cannula. GENERAL: Still not responsive on examination, seems to be at baseline. PULMONARY: Clear to auscultation bilaterally. No wheezing, rales, or rhonchi. No crackles appreciated. CARDIOVASCULAR: Positive S1, S2. No murmurs, rubs, or gallops appreciated. ABDOMEN: Soft, nondistended, nontender to palpation. Bowel sounds present. MUSCULOSKELETAL: Unable to assess. NEUROLOGIC: Unable to assess. SKIN: Intact. Warm to touch. LABORATORY DATA: Show white count 14, hemoglobin 7, hematocrit is 23, platelets of 389. PT 16, INR 1.24. Chemistry; sodium 139, potassium 3.9, chloride 100, bicarb 25, anion gap of 17, BUN is 38, creatinine is 4.07, glucose is 233, calcium is 7.8. Urine culture shows Enterococcus, but is less than 10,000 colonies. Blood cultures, no growth to-date. IMAGING STUDIES: MRI of the brain shows no acute infarct. Severe confluent white matter hyperdensities, likely chronic microvascular ischemic change. However, superimposed metabolic infectious process cannot be excluded. Multiple chronic lacunar infarcts as above. There are some hypointense foci likely microhemorrhages from chronic hypertension. IMPRESSION: aSPIRATION PNEUMONIA SEEMS TO BE BETTER 1. Metabolic encephalopathy presumed to be from underlying dehydration, acute infection. 2. History of cerebrovascular accident in the past, bed-bound, aphasic at baseline. 3. Coronavirus-19, pneumonia, viral pneumonia. HISTORY OF NOT ACTIVE AT PRESENT TIME PATIENT IS NOT INFECTIOUS PRESENT TIME 4. End-stage renal disease, on hemodialysis. 5. Type 2 diabetes. 6. Dysphagia.
[2020-05-13 14:18] LABS: HEMATOCRIT 25.3 % (38.2-49.6)
[2020-05-13] MEDS: BALSAM PERU/CASTOR OIL 60 GM OINT...G. TP SCH (15:08)
[2020-05-13] MEDS: BACITRACIN ZINC 15 GM OINT TOP SCH (15:08)
[2020-05-13] MEDS ORDERED: MIDAZOLAM HCL 2 MG/2 ML VIAL ONE (15:23)
[2020-05-13] MEDS ORDERED: LIDOCAINE HCL 1% LOCAL INJ 20 ML VIAL ONE (15:23)
[2020-05-13] MEDS ORDERED: SODIUM CHLORIDE 0.9% 250ML 250 ML ONE (15:23)
[2020-05-13] MEDS ORDERED: FENTANYL CITRATE/PF 100MCG/2 ML INJ ONE (15:24)
[2020-05-13] MEDS ORDERED: HYDRALAZINE HCL 20 MG/ML VIAL IV PRN (15:30)
--- NOTE | 2020-05-13 15:39 | Progress Note ---
DATE: 05/13/2020 Quick Progress Note SUBJECTIVE: Palliative care spoke with the patient's son Jb as well as the about code status above Mr. Paz. After further discussion with them, they have agreed to DNR status. They understand that Mr. Paz is very ill and sick. He has been bed-bound from prior CVAs. He is much more alert today on examination, but code status was very vital for Mr. Paz. They understand how sick he is. His overall prognosis is poor. His quality of life is poor. They have agreed to DNR status. Order has been placed and nursing staff has been notified. Palliative care also will document this in their charting as well. MD YANN Worthington/BOBBY /[id number]
--- NOTE | 2020-05-13 15:42 | NUR ---
PT OFF THE FLOOR FOR CENTRAL LINE TUNNELED CATHETER PLACEMENT
--- NOTE | 2020-05-13 16:34 | NUR ---
CALL TO ANTONIO AMBROSE. STATES SHE SPOKE W THE / DEBBI WHO IS THE MPOA AND JOYCE. STATES THEY ONLY DISCUSSED DNR STATUS. THIS THE ONLY THING DR. HOYOS WANTED ADDRESSED W THE FAMILY. CALL TO THE PT 'S , DEBBI TO GET CHOICE FOR [facility]. CHOSE [facility]. REFERRAL WAS FAXED TO [facility] @ [phone] MERLYN WAS NOTIFIED
--- NOTE | 2020-05-13 17:14 | NUR ---
PT BACK TO THE FLOOR. CENTRAL LINE TUNNELED CATHETER PLACED TO LEFT IJ. DRESSING C/D/I. V/S Q 30 MINUTES X4. RESUME TPN VIA NEW CENTRAL LINE IN 4HRS ([id number]).
[2020-05-13] MEDS: MEROPENEM 500MG/ NS 50ML 50 ML IV SCH (17:18)
--- NOTE | 2020-05-13 17:39 | Progress Note ---
DATE: 05/13/2020 SUBJECTIVE: The patient is not having fevers. He has minimal oxygen. PHYSICAL EXAMINATION: VITAL SIGNS: Stable. HEENT: No facial swelling or erythema. CARDIAC: Regular rate and rhythm with normal S1 and S2. LUNGS: Auscultation of lungs shows decreased breath sounds at the bases. There is no wheezing. ABDOMEN: Soft, nontender. There is no rebound or guarding. EXTREMITIES: No leg edema or calf tenderness. There is no cyanosis or clubbing. SKIN: No rashes. NEUROLOGICAL: No focal abnormalities. IMPRESSION: 1. Anemia secondary to chronic blood loss. 2. End-stage renal disease. 3. COVID-19 and viral pneumonia. 4. Prior cerebrovascular accident. 5. Decubitus ulcers present on admission. PLAN: 1. Continue oxygen. 2. Continue current antibiotics. 3. Wound care. MD VALENTINA Alberto/BOBBY /[id number]
--- NOTE | 2020-05-13 18:10 | NUR ---
ST Note: order noted for repeat BSE. Discussed case with DERIAN West. Pt currently sedated after procedure. Will f/u to complete eval as able.
--- NOTE | 2020-05-13 19:00 | NUR ---
Unable to flush double lumen central line placed today by IR. Call placed to IR spoke with Bandar who will come assess line. PPN restarted back to peripheral IV until central line works.
--- NOTE | 2020-05-13 19:30 | NUR ---
PER PAM FROM IR, PATIENT'S CENTRAL LINE FLUSHES WITH 10 CC NS ONLY WHEN SKIN ABOVE LINE IS PRESSED DOWN GENTLY; LINE IS POSITIONAL. PAM WILL MAKE IR PHYSICIAN AWARE.
--- NOTE | 2020-05-13 20:15 | NUR ---
Received pt in bed awake. No s/sx of acute distress noted. Denies discomfort at this time. Bed in low and locked position. Fluids infusing with no diff. Bedside report given informed of situation with new central line. Will cont to mon
[2020-05-13] MEDS: ATORVASTATIN 20 MG TAB PO SCH (21:00)
[2020-05-13] MEDS: PERIPHERAL TPN FORMULA 1 BAG IV SCH (22:00)
[2020-05-13] MEDS: AZITHROMYCIN 500MG/NS 250 ML 250 ML IV SCH (22:01)
[2020-05-14] VITALS (8 sets, daily range): BP systolic 128–152; BP diastolic 73–87
--- NOTE | 2020-05-14 01:11 | Progress Note ---
DATE: 05/14/2020 Medicine Progress Note SUBJECTIVE: The patient was seen early in the afternoon. He is much more awake and alert. He is actually responsive to my commands, but does not speak at all. He seems to be at his baseline. Palliative Care spoke with the family and they have agreed to DNR, which is now placed in the computer. PHYSICAL EXAMINATION: VITAL SIGNS: Temperature is 99.3, pulse 96, respiratory rate is 17, blood pressure is 127/72, pulse ox 100% on 2 L nasal cannula. GENERAL: He is awake. He is alert. He is not oriented. PULMONARY: Clear to auscultation bilaterally. No wheezing, no rales, no rhonchi, no crackles appreciated. CARDIOVASCULAR: Positive S1 and S2. No murmurs, rubs, or gallops appreciated. ABDOMEN: Soft, nondistended, and nontender to palpation. Bowel sounds present. MUSCULOSKELETAL: Unable to assess. NEUROLOGIC: Unable to assess. At baseline. LABORATORY FINDINGS: Show white count was 12.3, hemoglobin was 6.3, given 2 units packed RBCs, now hemoglobin of 8, hematocrit is 25, platelets of 328. Chemistries reviewed. MICROBIOLOGY: Urine culture shows Enterococcus. Blood cultures, no growth to-date. IMAGING STUDIES: Chest x-ray, post central line. No change. IMPRESSION: 1. Metabolic encephalopathy secondary to underlying dehydration, acute infection. 2. History of cerebrovascular accident in the past, bedbound, aphasic at baseline. 3. Coronavirus pneumonia with viral pneumonia. 4. End-stage renal disease, on hemodialysis. 5. Type 2 diabetes. 6. Dysphagia. PLAN: At this time, MRI of the brain shows no acute findings. Neurology is following. EEG pending. Continue with IV antibiotic therapy, being managed by ID. Episodically, he has fever. Get a.m. labs. The patient is receiving dialysis by Nephrology. Continue with IV PPN for now. He must complete 14 total days in order for him to have a PEG tube placed due to guidelines. Get morning labs. MD YANN Worthington/MODMichael /[id number]
[2020-05-14 06:29] LABS: BASOPHILS % 0.4 % (0.0-1.0); EOSINOPHILS # (AUTO) 0.1 (0.0-0.4); EOSINOPHILS % 0.9 % (0.0-6.0); HEMATOCRIT 25.9 % (38.2-49.6); LYMPHOCYTES % 9.9 % (18.0-39.1); MEAN CORPUSCULAR HEMOGLOBIN 26.7 pg (28-32); MEAN CORPUSCULAR HGB CONC 30.9 g/dL (31-35); MEAN CORPUSCULAR VOLUME 86.3 fL (81-99); MONOCYTES # (AUTO) 0.7 (0.2-0.8); MONOCYTES % 7.1 % (4.4-11.3); NEUTROPHILS # (AUTO) 8.2 (2.1-6.9); NEUTROPHILS % 81.3 % (38.7-80.0); PLATELET COUNT 293 x10e3/uL (140-360); RED CELL DISTRIBUTION WIDTH 14.4 % (11.7-14.4)
[2020-05-14 06:43] LABS: ANION GAP 18.5 mmol/L (8-16); CALCIUM 7.8 mg/dL (8.4-10.2); CREATININE, SERUM 3.34 mg/dL (0.72-1.25); POTASSIUM 3.5 mmol/L (3.5-5.1)
[2020-05-14] MEDS: INSULIN REGULAR, HUMAN 100 UNIT/1 ML 3ML VIAL SQ SCH ×4 (07:30→21:45)
[2020-05-14] MEDS: ASPIRIN 325 MG TAB PO SCH (08:56)
[2020-05-14] MEDS: BALSAM PERU/CASTOR OIL 60 GM OINT...G. TP SCH (09:18)
[2020-05-14] MEDS: BACITRACIN ZINC 15 GM OINT TOP SCH (09:18)
--- NOTE | 2020-05-14 09:18 | NUR ---
PATIENT IS AWAKE AND IN STABLE CONDITION WITH NO S/S OF RESPIRATORY DISTRESS. NO PAIN INDICATED. TELEMETRY APPLIED. TPN INFUSING. ALLEVYN APPLIED TO ALL WOUND SITES AND 4x4 APPLIED TO RIGHT UPPER CHEST- ALL DRESSINGS ARE C/D/I. HEEL PROTECTORS APPLIED. CALL LIGHT IS WITHIN REACH, PATIENT INSTRUCTED TO CALL FOR ASSISTANCE NEEDED. Addendum: 05/14/20 at 1929 by Mona Lucio RN CORRECTION: PPN INFUSING
--- NOTE | 2020-05-14 10:26 | NUR ---
patient awake, nonverbal 99.3 128/77 89 GENERAL: He is lying in bed quietly. HEENT: His extraocular muscles are intact. Normocephalic. NECK: Supple. ABDOMEN: Soft. CARDIOVASCULAR: Regular rate and rhythm. PULMONARY: Mildly rhonchus. There are no bruits on the carotid exam. Mildly rhonchus lungs and crackles noted in the lower bases. MUSCULOSKELETAL: Overall he has diffuse weakness and contractions in the lower extremities. He is aphasic. He does not follow commands at this time. He has spasticity in the upper and lower extremities. He does seem to respond to noxious stimulus in all four extremities. So sensory is intact in this regard. Does blink to threat. ASSESSMENT/PLAN: I am seeing the patient for severe encephalopathy, delirium, and severe spastic weakness. His MRI shows no acute infarcts with severe diffuse white matter changes throughout, multiple lacunar infarcts in the past as well as microhemorrhages on the MRI, but nothing acute. It is likely that we are dealing with acute on chronic neurovascular decline secondary to physiological stress. As an outpatient, we can initiate Botox for spasticity treatment and contractures. asa and statin pt ot rehab placement vs palliative care eeg not needed
[2020-05-14] MEDS: LINEZOLID 600 MG/D5W 300ML 300 ML IV SCH (14:50)
[2020-05-14] MEDS: MEROPENEM 500MG/ NS 50ML 50 ML IV SCH (17:00)
--- NOTE | 2020-05-14 17:39 | Progress Note ---
DATE: 05/14/2020 SUBJECTIVE: The patient is afebrile. There are no new complaints. PHYSICAL EXAMINATION: VITAL SIGNS: Stable. CARDIAC: Reveals regular rate and rhythm with normal S1, S2. LUNGS: Auscultation of lungs shows decreased breath sounds at the bases. There is no wheezing. ABDOMEN: Soft and nontender. There is no rebound or guarding. EXTREMITIES: Shows no leg edema. There are some decubitus ulcerations. LABORATORY DATA: Hemoglobin is 8 and the platelet count is 293. BUN to creatinine ratio is 52 to 3.34 and the other electrolytes are within normal limits. IMPRESSION: 1. Anemia secondary to chronic blood loss. 2. Viral pneumonia and COVID-19 infection. 3. End-stage renal disease. 4. Prior cerebrovascular accident. PLAN: 1. Continue oxygen. 2. Dialysis. 3. Wound care. 4. Discussed disposition with attending and Case Management. Sandeep Jorge MD [facility]/BOBBY /[id number]
--- NOTE | 2020-05-14 17:44 | Progress Note ---
DATE: 05/14/2020 SUBJECTIVE: The patient is seen and evaluated. Available labs and notes reviewed. Discussed with the nurse and attending notes noted. REVIEW OF SYSTEMS: The patient is nonverbal, however, seems to be awake and alert and responds appropriately by nodding head. PHYSICAL EXAMINATION: VITAL SIGNS: Temperature 98.1, pulse 86, respirations 20, and blood pressure 140/83. GENERAL: Awake, seems to be alert and responds appropriately by nodding. CV: S1-S2. CHEST: Equal expansion, decreased breath sounds. No acute distress. ABDOMEN: Soft, positive bowel sounds. Nontender. HEENT: Moist. No pale. EXTREMITIES: position, no obvious acute finding. MEDICATIONS: Reviewed from ID point of view, Zyvox was started today by attending physician secondary to VRE of the urine. The patient also on Zithromax and Merrem. LABORATORY STUDIES: White count of 10.04, hemoglobin 8, and platelets 293. Sodium 139, potassium 3.5, creatinine is 3.34. SEROLOGY: Coronavirus PCR detected on 05/10. Hep B surface antigen is negative. MICROBIOLOGY: Urine culture VRE from 05/10 and blood culture from 05/10 is negative in 72 hours. RADIOLOGY STUDIES: No new radiology studies available. I had a chest x-ray on 05/13 showing no significant interval change. ASSESSMENT AND PLAN: 1. This is a pleasant 55-year-old gentleman who has a history of a Coronavirus pneumonia in the past with viral pneumonia of which he is no longer active and is not infectious at this point, remains on room air, no acute finding. 2. Metabolic encephalopathy with concerns of dehydration versus infection. Radiology and Microbiology studies as above. 3. History of cerebrovascular disease, the patient with contracted extremities in bed bound. 4. End-stage renal disease, continue with hemodialysis as recommended by Renal specialties. 5. Dysphagia, the patient is at risk for aspiration. 6. Vancomycin-resistant Enterococci of the urine, attending physician noted the patient is started on Zyvox. The patient's platelet count is 293. The patient also on Zithromax and Merrem. Continue to monitor patient clinically and follow up with labs. Dictated by Monroe Wheeler PA-C (Al) Berny Dominguez MD /MODL /[id number]
--- NOTE | 2020-05-14 18:04 | Progress Note ---
DATE: 05/14/2020 Medicine Progress Note SUBJECTIVE: The patient is much more alert today. He responds, but cannot talk, this from his baseline from his COVID. OBJECTIVE: VITAL SIGNS: Temperature is 98.1, pulse 85, respiratory rate 20, blood pressure 140/83, and pulse ox 98% on room air. GENERAL: He is awake. He is alert. He follows commands, but does not move much. He is aphasic from prior strokes. PULMONARY: Clear to auscultation bilaterally. No wheezing, rales, or rhonchi. No crackles appreciated. CARDIOVASCULAR: Positive S1, S2. No rubs or gallops appreciated. ABDOMEN: Soft, nontender to palpation. Bowel sounds present. MUSCULOSKELETAL: He is very weak, contracted, but he is alert and awake. NEUROLOGIC: He is alert and awake. He does comprehend. LABORATORY FINDINGS: Show white count 10, hemoglobin 8, hematocrit 25.9, and platelets of 293. Coagulation, PT 16 and INR 1.26. Chemistry, sodium 139, potassium 3.5, chloride 102, bicarb 23, anion gap of 18, BUN is 50, creatinine 3.3, glucose is 209, and calcium is 7.8. MICROBIOLOGY: Shows VRE in the urine. Blood cultures no growth. IMAGING STUDIES: Nothing new. IMPRESSION: 1. Metabolic encephalopathy secondary to underlying dehydration from acute infection, now improving. 2. History of cerebrovascular accident in the past, bed-bound, aphasic at baseline. 3. Coronavirus with coronavirus pneumonia. 4. End-stage renal disease, on hemodialysis. 5. Type 2 diabetes. 6. Dysphagia. PLAN: At this time, MRI of the brain shows no acute findings. Neurology is following and the EEG is pending. His urine culture was consistent with VRE, in which I added IV Zyvox and notified ID. He is still on Merrem and azithromycin, which I will defer to ID. Get a.m. labs. Dialysis per Nephrology. We did put a central line yesterday, but apparently it is not functional, so I did change him to IV TPN. We are going to get speech eval on Saturday, and if he does well, may not need a PEG tube. Continue to follow with the rest of the consultants. Jiries S Dahu, MD [facility]/GETL /[id number]
--- NOTE | 2020-05-14 19:18 | NUR ---
PATIENT IN STABLE CONDITION WITH NO S/S OF RESPIRATORY DISTRESS. NO PAIN INDICATED. PPN INFUSING. TELEMETRY AND O2 AT 2L NC APPLIED. HEEL PROTECTORS APPLIED. ALLEVYN APPLIED TO ALL WOUND SITES INDICATED. CALL LIGHT IS WITHIN REACH, PATIENT INSTRUCTED TO CALL FOR ASSISTANCE NEEDED. REPORT GIVEN TO ONCOMING NURSE.
[2020-05-14] MEDS: ATORVASTATIN 20 MG TAB PO SCH (19:59)
[2020-05-14] MEDS: AZITHROMYCIN 500MG/NS 250 ML 250 ML IV SCH (21:45)
--- NOTE | 2020-05-14 21:45 | NUR ---
PATIENT RESTING IN BED IN STABLE CONDITION, NO SIGN OF DISTRESS NOTED. PPN IS RUNNING AT ORDERED RATE, PATIENT IS APHASIC AND SHOWS NO PAIN AT THIS TIME.WOUNDS NOTED TO BILATERAL LOWER EXTREMITIES, RIGHT HIP, AND SACRUM, SITES ARE CLEAN, DRY, AND INTACT. BED IS IN LOWEST POSITION, BOTH SIDE RAILS ARE UP, CALL LIGHT IS WITHIN REACH, WILL CONTINUE TO MONITOR.
[2020-05-14] MEDS: PERIPHERAL TPN FORMULA 1 BAG IV SCH (23:52)
[2020-05-15] VITALS (8 sets, daily range): BP systolic 110–144; BP diastolic 75–88
[2020-05-15] MEDS: LINEZOLID 600 MG/D5W 300ML 300 ML IV SCH ×2 (01:17→13:58)
[2020-05-15 06:40] LABS: BASOPHILS % 0.4 % (0.0-1.0); EOSINOPHILS # (AUTO) 0.1 (0.0-0.4); EOSINOPHILS % 1.1 % (0.0-6.0); HEMATOCRIT 23.9 % (38.2-49.6); HEMOGLOBIN 7.6 g/dL (14.0-18.0); LYMPHOCYTES # (AUTO) 1.3 (1.0-3.2); LYMPHOCYTES % 13.7 % (18.0-39.1); MEAN CORPUSCULAR HGB CONC 31.8 g/dL (31-35); MEAN CORPUSCULAR VOLUME 84.8 fL (81-99); MONOCYTES # (AUTO) 0.9 (0.2-0.8); MONOCYTES % 9.2 % (4.4-11.3); NEUTROPHILS # (AUTO) 7.2 (2.1-6.9); NEUTROPHILS % 74.8 % (38.7-80.0); PLATELET COUNT 304 x10e3/uL (140-360); RED BLOOD COUNT 2.82 x10e6/uL (4.3-5.7); RED CELL DISTRIBUTION WIDTH 14.6 % (11.7-14.4)
[2020-05-15] MEDS: INSULIN REGULAR, HUMAN 100 UNIT/1 ML 3ML VIAL SQ SCH ×4 (07:30→21:45)
[2020-05-15 07:36] LABS: ANION GAP 19.7 mmol/L (8-16); CALCIUM 7.6 mg/dL (8.4-10.2); CREATININE, SERUM 4.3 mg/dL (0.72-1.25); POTASSIUM 3.7 mmol/L (3.5-5.1)
[2020-05-15] MEDS: ASPIRIN 325 MG TAB PO SCH (08:03)
--- NOTE | 2020-05-15 10:16 | NUR ---
PATIENT IS IN STABLE CONDITION WITH NO S/S OF RESPIRATORY DISTRESS. NO PAIN INDICATED. TELEMETRY APPLIED. PPN INFUSING. ALLEVYN APPLIED TO ALL WOUND SITES-DRESSINGS ARE C/D/I. HEEL PROTECTORS APPLIED. CALL LIGHT IS WITHIN REACH, RN WILL CONTINUE TO HOURLY ROUND ON PATIENT.
[2020-05-15] MEDS: BACITRACIN ZINC 15 GM OINT TOP SCH (10:45)
[2020-05-15] MEDS: BALSAM PERU/CASTOR OIL 60 GM OINT...G. TP SCH (10:46)
--- NOTE | 2020-05-15 12:01 | Progress Note ---
DATE: 05/15/2020 SUBJECTIVE: Mr. Paz is seen on rounds today. He is doing about the same. He is a little bit more awake, more alert, but really nonverbal, not responsive to me too much. OBJECTIVE: VITAL SIGNS: Temperature 98.2, respirations 18, heart rate of 95, blood pressure 110/79. LABORATORY DATA: White cell count of 9.6, hemoglobin 7.6, hematocrit 23.9, platelets of 304. Chest x-ray done a couple of days ago showed no significant interval change. Therapy is not able to be patient, as he has contractures and not able again to participate in much therapy, again trying to stretching out to help which causes a lot of pain and it pulls himself into position to improve. Continue supportive care. Mac Galaviz DO RPL/MODL /[id number]
--- NOTE | 2020-05-15 15:07 | Progress Note ---
DATE: 05/15/2020 SUBJECTIVE: The patient was seen and evaluated. Available labs and notes reviewed. Discussed with staff. No new events. REVIEW OF SYSTEMS: The patient is nonverbal, however, nods his head in response that he is doing okay and he is comfortable. PHYSICAL EXAMINATION: VITAL SIGNS: Temperature is 98.8, pulse 95, respiration 22, blood pressure 144/88, temperature reviewed, patient is afebrile for past 48 hours. GENERAL: Awake and seems to be alert, responds appropriately by nodding head. CV: S1, S2. CHEST: Equal expansion. Decreased breath sounds. No acute distress. ABDOMEN: Soft, nontender. HEENT: Moist. No pallor. No JVD. EXTREMITIES: Weak. No edema. Wounds on local care. MEDICATIONS: Reviewed. From ID point of view patient is on Zyvox, Zithromax, and Merrem. LABORATORY STUDIES: White count of 9.68, hemoglobin 7.6, platelet 304. Sodium 136, potassium 3.7, creatinine 4.3. MICROBIOLOGY: Urine culture 05/10/2020 showed VRE. Blood culture 05/10/2020 negative. IMAGING DATA: No new radiology studies available. ASSESSMENT AND PLAN: 1. Recent coronavirus disease-2019 infection with viral pneumonia. The patient is no longer infectious and virus is no longer active. The patient is on room air and has no shortness of breath. 2. Metabolic encephalopathy as mentioned above. The patient is awake and alert and responds appropriately. 3. Urinary tract infection, possibly versus bacteriuria with vancomycin-resistant Enterococcus-started Zyvox yesterday. 4. Cerebrovascular accident. 5. End-stage renal disease. 6. Dysphagia. 7. Continue with antibiotics as mentioned above, further management of this patient is based on the findings on laboratory and physical examination. Dictated by Monroe Wheeler PA-C (Al) Berny Dominguez MD /MODL /[id number]
--- NOTE | 2020-05-15 15:10 | NUR ---
patient awake, nonverbal 98.1 137/79 84 GENERAL: He is lying in bed quietly. HEENT: His extraocular muscles are intact. Normocephalic. ABDOMEN: Soft. CARDIOVASCULAR: Regular rate and rhythm. PULMONARY: Mildly rhonchus. There are no bruits on the carotid exam. Mildly rhonchus lungs and crackles noted in the lower bases. MUSCULOSKELETAL: Overall he has diffuse weakness and contractions in the lower extremities. He is aphasic. He does not follow commands at this time. He has spasticity in the upper and lower extremities. He does seem to respond to noxious stimulus in all four extremities. So sensory is intact in this regard. Does blink to threat. ASSESSMENT/PLAN: I am seeing the patient for severe encephalopathy, delirium, and severe spastic weakness. His MRI shows no acute infarcts with severe diffuse white matter changes throughout, multiple lacunar infarcts in the past as well as microhemorrhages on the MRI, but nothing acute. It is likely that we are dealing with acute on chronic neurovascular decline secondary to physiological stress. As an outpatient, we can initiate Botox for spasticity treatment and contractures. asa and statin pt ot rehab placement vs palliative care
[2020-05-15] MEDS: MEROPENEM 500MG/ NS 50ML 50 ML IV SCH (16:33)
--- NOTE | 2020-05-15 16:58 | Progress Note ---
DATE: 05/15/2020 Medicine Progress Note. SUBJECTIVE: The patient is alert on stimulation, does not respond much, but does follow some commands very minimum. PHYSICAL EXAMINATION: VITAL SIGNS: Temperature is 97.7, pulse 90, respiratory rate is 18, blood pressure is 135/77, pulse ox 98% on nasal cannula. GENERAL: He is alert. He is awake with stimulation. He does not speak at baseline. PULMONARY: Clear to auscultation bilaterally. No wheezing, rales, or rhonchi. No crackles appreciated. CARDIOVASCULAR: Positive S1, S2. No rubs or gallops appreciated. ABDOMEN: Soft, nondistended. Nontender to palpation. Bowel sounds present. MUSCULOSKELETAL: He is contracted. NEUROLOGIC: He is contracted, unable to assess. LABORATORY FINDINGS: Show white count 9.6, hemoglobin 7.6, hematocrit 24, and platelets of 304. Chemistry, sodium 136, potassium 3.7, chloride 109, bicarb 20, anion gap of 19, BUN 73, creatinine 4.3, glucose is 233, calcium is 7.6. MICROBIOLOGY: Urine culture, enterococcus VRE. IMAGING STUDIES: Nothing new. IMPRESSION: 1. Metabolic encephalopathy secondary to underlying dehydration from acute infection, now improving. 2. History of cerebrovascular disease in the past, bed-bound, aphasic at baseline. 3. Coronavirus pneumonia. 4. End-stage renal disease, on dialysis. 5. Type 2 diabetes. 6. Dysphagia. PLAN: At this time, MRI of the brain shows no acute findings. EEG is pending. Neurology is following. As per ID's perspective, he has IV antibiotics, being managed accordingly. Get morning labs. HD scheduled for tomorrow. On a sliding scale for diabetes. Continue with IV TPN. Speech therapy did come and evaluate him this morning. They did not feel that they were comfortable to feed him, but they would like to visit with him tomorrow. The PEG tube would not be placed for an additional 10 more days. Otherwise, continue with same plan of care. Monitor closely. MD YANN Worthington/MODL /[id number]
--- NOTE | 2020-05-15 19:18 | NUR ---
PATIENT IN STABLE CONDITION WITH NO S/S OF RESPIRATORY DISTRESS. NO PAIN INDICATED. TELEMETRY APPLIED. DIAPER APPLIED. HEEL PROTECTORS APPLIED. CALL LIGHT IS WITHIN REACH, PATIENT INSTRUCTED TO CALL FOR ASSISTANCE NEEDED. REPORT GIVEN TO ONCOMING NURSE.
[2020-05-15] MEDS: ATORVASTATIN 20 MG TAB PO SCH (19:56)
[2020-05-15] MEDS: AZITHROMYCIN 500MG/NS 250 ML 250 ML IV SCH (22:35)
[2020-05-15] MEDS: PERIPHERAL TPN FORMULA 1 BAG IV SCH (23:45)
[2020-05-16] VITALS (7 sets, daily range): BP systolic 133–159; BP diastolic 77–89
[2020-05-16] MEDS: LINEZOLID 600 MG/D5W 300ML 300 ML IV SCH ×2 (02:19→14:37)
[2020-05-16 07:00] LABS: BASOPHILS % 0.4 % (0.0-1.0); EOSINOPHILS # (AUTO) 0.1 (0.0-0.4); EOSINOPHILS % 1.3 % (0.0-6.0); HEMATOCRIT 25.4 % (38.2-49.6); HEMOGLOBIN 7.9 g/dL (14.0-18.0); LYMPHOCYTES # (AUTO) 1.2 (1.0-3.2); LYMPHOCYTES % 12.4 % (18.0-39.1); MEAN CORPUSCULAR HEMOGLOBIN 26.6 pg (28-32); MEAN CORPUSCULAR HGB CONC 31.1 g/dL (31-35); MEAN CORPUSCULAR VOLUME 85.5 fL (81-99); MONOCYTES % 10.6 % (4.4-11.3); NEUTROPHILS # (AUTO) 7.2 (2.1-6.9); NEUTROPHILS % 73.8 % (38.7-80.0); PLATELET COUNT 287 x10e3/uL (140-360); RED BLOOD COUNT 2.97 x10e6/uL (4.3-5.7)
--- NOTE | 2020-05-16 07:00 | NUR ---
received bedside report. pt is alert resting in bed, no s/s of distress. bed safety in place, pt is contracted in lower extremities and skin safety precautions in place. TPN running in right forearm at 80mL/hr.
[2020-05-16 07:33] LABS: ANION GAP 22.9 mmol/L (8-16); CALCIUM 7.6 mg/dL (8.4-10.2); CREATININE, SERUM 5.13 mg/dL (0.72-1.25); POTASSIUM 3.9 mmol/L (3.5-5.1)
[2020-05-16] MEDS: ASPIRIN 325 MG TAB PO SCH (08:24)
[2020-05-16] MEDS: INSULIN REGULAR, HUMAN 100 UNIT/1 ML 3ML VIAL SQ SCH ×3 (08:35→16:30)
--- NOTE | 2020-05-16 09:10 | NUR ---
flushed left central catheter, both lumens are patent. started TPN through left central line at ordered rate of 80mL/hr
--- NOTE | 2020-05-16 10:17 | NUR ---
patient awake no acute overnight issues 98 126/86 88 GENERAL: He is lying in bed quietly. HEENT: His extraocular muscles are intact. Normocephalic. ABDOMEN: Soft. CARDIOVASCULAR: Regular rate and rhythm. PULMONARY: Mildly rhonchus. There are no bruits on the carotid exam. Mildly rhonchus lungs and crackles noted in the lower bases. MUSCULOSKELETAL: Overall he has diffuse weakness and contractions in the lower extremities. He is aphasic. He does not follow commands at this time. He has spasticity in the upper and lower extremities. He does seem to respond to noxious stimulus in all four extremities. So sensory is intact in this regard. Does blink to threat. ASSESSMENT/PLAN: I am seeing the patient for severe encephalopathy, delirium, and severe spastic weakness. His MRI shows no acute infarcts with severe diffuse white matter changes throughout, multiple lacunar infarcts in the past as well as microhemorrhages on the MRI, but nothing acute. It is likely that we are dealing with acute on chronic neurovascular decline secondary to physiological stress. As an outpatient, we can initiate Botox for spasticity treatment and contractures. asa and statin pt ot rehab placement vs palliative care
--- NOTE | 2020-05-16 11:38 | NUR ---
no changes in TPN order, per Dr. Barber
[2020-05-16] MEDS: BACITRACIN ZINC 15 GM OINT TOP SCH (13:29)
[2020-05-16] MEDS: BALSAM PERU/CASTOR OIL 60 GM OINT...G. TP SCH (13:29)
[2020-05-16] MEDS ORDERED: SODIUM CHLORIDE 0.9% 250ML 250 ML ONE (14:32)
--- NOTE | 2020-05-16 16:50 | NUR ---
Nutrition Intervention Note RD Recommendation(s) for Physician: If pt is unable to safely swallow, recommend enteral nutrition -Nepro @ goal rate of 50 mL/hr and fluid management per MD (provides 2160 kcal, 97 g protein) If pt is able to swallow safely, recommend a renal diet with texture modification per speech therapy Plan of Care: RD following, monitoring for tolerance and adequacy Nutrition reason for involvement: length of stay and parenteral nutrition RD Assessment (05/16/20) Pt is a 55 year old male admitted with COVID-19, ESRD on dialysis, fever, pneumonia, and UTI. Unable to enter room due to isolation precautions for COVID-19. Speech therapy recommends modified barium swallow study be completed. Pt is receiving PPN @ 80 mL/hr with 50 gm lipids 3x/week. Recommend enteral nutrition if feasible. Will continue to monitor. Principal Problems/Diagnoses: COVID-19 ESRD on dialysis, fever, pneumonia, and UTI PMH: CVA, bed-bound, aphasic, on dialysis GI: last recorded BM 05/15, flat, soft, non-tender abdomen Skin: stage 1 area to coccyx, right hip newly healing area, right lower leg newly healed area, right foot newly healed area, left knee unstageable ulcerations, left lateral ankle DTI Labs: (05/16/20) Na 133, BUN 93, Cr 5.13, Glu 220, Ca 7.6 Meds: insulin, antibiotics, heparin, zofran Ht: 70 in Wt: 160 lbs BMI: 23.0 kg/m2 IBW: 166 lbs Malnutrition Evaluation (05/16/20) The patient does not meet criteria for a specified degree of malnutrition at this time. Will re-evaluate at follow-up as appropriate. Energy intake: <50% of estimated energy requirements for >5 days Weight loss: Unable to assess Fat loss: unable to evaluate Muscle loss: unable to evaluate Supporting Evidence: Fluid accumulation: no edema per MD note Functional Status: unable to evaluate Nutrition Prescription (Diet Order): NPO, PPN @ 80 mL/hr with 50 gm lipids 3x/week (provides 845 kcal, 82 g protein) Estimated Nutritional Needs: 3571-1869 calories/day (30-35 kcal/kg CBW) 87-109 g protein/day (1.2-1.5 g pro/kg CBW) Diet Adequacy: Not meeting calorie needs, Not meeting protein needs Tolerance: N/A Diet Education Needs Assessment: Diet education not indicated, patient on temporary/transition diet. Nutrition Care Level: high Nutrition Diagnosis: Inadequate energy intake related to decreased ability to consume sufficient energy as evidenced by need for alternative means of nutrition. Goal: Patient will meet 75-100% of estimated needs by follow up Progress: N/A Interventions: -Composition, Rate, Route, Recommended Modifications Monitoring/Evaluation: -Total energy intake, Total protein intake, Formula/Solution,, Weight change Signed: Kelsi Guzman RD, LD
[2020-05-16] MEDS: MEROPENEM 500MG/ NS 50ML 50 ML IV SCH (17:00)
--- NOTE | 2020-05-16 17:50 | NUR ---
Called and spoke to Jb Paz (son) and informed him that the patient would be transferred to [facility] after 7pm
--- NOTE | 2020-05-16 18:10 | Progress Note ---
DATE: 05/16/2020 SUBJECTIVE: The patient was seen and evaluated. Available labs and notes reviewed. Discussed with Dr. Dominguez. The patient responds by nodding head. I had discussed with the nurse. No new complaints. No new issues. Uneventful night. The patient has been accepted to [place], pending bed assignment and transfer. PHYSICAL EXAMINATION: VITAL SIGNS: Temperature is 98.7, pulse 93, respiration 22, blood pressure 150/83. GENERAL: Awake and alert. No acute distress. CV: S1, S2. CHEST: Equal expansion. Clear to auscultation. No acute distress. ABDOMEN: Soft, nontender. HEENT: Moist. No pallor. No JVD. EXTREMITIES: Weak. MEDICATIONS: From ID point of view patient is on Zyvox, Azactam and meropenem. LABORATORY STUDIES: White count of 9.0, hemoglobin 7.9, platelet 287. Sodium 133, potassium 3.9, creatinine 5.13. MICROBIOLOGY: Urine VRE on 05/10/2020 blood culture negative, final. ASSESSMENT AND PLAN: 1. Metabolic encephalopathy. 2. Dehydration. 3. Cerebrovascular accident. 4. Coronavirus disease-2019 pneumonia. 5. End-stage renal disease. 6. Urinary tract infection with vancomycin-resistant Enterococcus. 7. Dysphagia. 8. Continue with antibiotics as mentioned above, patient to be transferred to [place] after bed assignment. The patient has already been approved for LTAC and accepted. Continue to monitor the patient clinically. Follow up with the labs. Discussed with Dr. Dominguez in detail. Dictated by Monroe Wheeler PA-C (Al) Berny Dominguez MD /MODL /[id number]
--- NOTE | 2020-05-16 18:50 | NUR ---
gave report to DERIAN Herrera at [facility]. Pt will be going to room 303
--- NOTE | 2020-05-16 19:20 | NUR ---
Received the pt in report.dialysis going on.stable condition.
[2020-05-16] MEDS: PERIPHERAL TPN FORMULA 1 BAG IV SCH (20:21)
[2020-05-16] MEDS: EPOETIN ALFA-EPBX 10,000 UNIT/ML VIAL SC SCH (20:26)
--- NOTE | 2020-05-16 20:35 | NUR ---
V/S STABLE.DIALYSIS COMPLETED.1.5 LITRE REMOVED.TPN BAG IS SENDING WITH PATIENT.REPORT GIVEN TO LTAC RN AND EMS PEOPLE.ALL THE BELONGINGS SENT WITH PATIENT.TRANSFERRING TO [facility] BY AMBULANCE IN A STABLE CONDITION.
--- NOTE | 2020-05-16 20:37 | NUR ---
DC TELE AND RETURNED TO DEPT.
--- NOTE | 2020-05-17 02:12 | Discharge Summary ---
FINAL DISCHARGE DIAGNOSES: 1. Metabolic encephalopathy secondary to underlying dehydration from acute infection-improved now at baseline. 2. History of cerebrovascular accident in the past, bed-bound, aphasic at baseline. 3. Coronavirus pneumonia, asymptomatic. 4. End-stage renal disease, on hemodialysis. 5. Type 2 diabetes. 6. Dysphagia needing IV nutrition and potential PEG tube placement. 7. Vancomycin-resistant Enterococcus, urinary tract infection. CONSULTANTS: Pulmonary, ID, Nephrology, Physical Medicine Rehab, Wound Care, GI, Neurology, Cardiology, Palliative Care. PHYSICAL EXAMINATION: VITAL SIGNS: Temperature is 98.1, pulse 99, respiratory rate is 20, blood pressure 150/83, pulse ox 96% on room air. LABORATORY DATA: Show white count 9.7, hemoglobin 7.9, hematocrit 25, platelets of 287. Coagulation; PT 16, INR 1.26. Chemistry; sodium 133, potassium 3.9, chloride 98, bicarb 16, anion gap of 20, BUN of 93, creatinine 5.1, glucose is 220, calcium is 7.6. Troponins were negative. CK was 385, albumin 2. Urinalysis positive for UTI. Serology; coronavirus test positive. Hepatitis B antigen was negative. Microbiology, blood cultures were negative. Urine culture shows Enterococcus faecalis VRE. IMAGING STUDIES: Chest x-ray shows subtle patchy opacities in the lower lungs can be due to atelectasis or underlying pneumonia. MRI of the brain shows no acute infarct. There is severe confluent white matter hyperdensities, likely chronic microvascular ischemic changes. However, superimposed metabolic infectious process cannot be excluded. Multiple chronic lacunar infarcts as above. There is also some hypodense foci likely microhemorrhages from chronic hypotension. Repeat chest x-ray on 05/13/2020, shows no significant interval change. HOSPITAL COURSE: This is a 55-year-old male with multiple comorbidities. Of note, he is bed-bound, aphasic from a prior CVA, has been in and out of the [facility] facilities ongoing for the last several months. He presents to the [facility] ER due to underlying encephalopathy. While here, the patient was treated for underlying sepsis with broad-spectrum IV antibiotic therapy. Blood cultures were negative and his urine was consistent with Enterococcus VRE. ID was consulted. He was also found to have coronavirus-19 pneumonia and was treated accordingly. He was in fact asymptomatic. Pulmonary was consulted as well. The patient was severely cachectic, prompting IV TPN nutrition. The patient will need a PEG tube, which I did consult with GI, but due to the fact that the patient has acute COVID-19 pneumonia, the patient will need to wait for approximately 10-14 days until his coronavirus is negative before PEG tube is inserted. I discussed this with the GI specialist as well. Cardiology was consulted for cardiac clearance in the event the PEG tube will be inserted. The PEG tube was not inserted during his hospital stay instead he was discharged with IV TPN nutrition. He is also a dialysis patient, which Nephrology was consulted, which the patient received several treatments of dialysis while here in the hospital stay. He also received blood transfusion during dialysis. The patient also has a local sacral wounds being managed accordingly with wound care team. I had several conversations with the patient's son, Jb, and which he made his father DNR/DNI as per the family's wishes. I had Palliative Care involved as well and they were not interested in hospice, but were interested in DNR/DNI. The patient's antibiotics were adjusted accordingly by ID as well. The patient was discharged to [facility] for further management and care until a PEG tube will be inserted at a later date till his coronavirus is found to be negative. The patient is back to his normal baseline. In fact, he is alert and he does comprehend, but is aphasic. He does follow basic commands. The patient was severely contracted. The patient was cleared for discharge by all consultants involved in this patient's care. On the day of discharge, vital signs were stable. Labs, reviewed and stable. The patient was seen evaluated and examined thoroughly on the day of discharge. No other complaints. The patient verbalized understanding and agreed to plan of care to follow up accordingly as an outpatient with primary care physician in 1 week and in about 2 weeks' time. MEDICATIONS: See med reconciliation form. DISPOSITION: [facility] under Dr. Garcia. CONDITION: Stable. DIET: Diet is IV TPN. In the event of any worsening symptoms, the patient was advised to come back to the ED for further evaluation. Discharge summary took greater than 35 minutes. While at [facility], the patient will be treated for IV antibiotics being managed by ID and will need a PEG tube in approximately 10 more days for nutrition. This is currently the patient's baseline according to the family when I spoke with them. MD YANN Worthington/MODMichael /[id number]
--- NOTE | 2020-05-17 10:24 | Diagnostic Imaging Report ---
PROCEDURE: Tunneled central venous catheter placement Procedural Personnel Attending physician(s): Love Tobar MD Fellow physician(s): None Resident physician(s): None Advanced practice provider(s): None Pre-procedure diagnosis: Viral pneumonia Post-procedure diagnosis: Same Indication: Intravenous medication/fluid administration Additional clinical history: None Complications: No immediate complications. IMPRESSION: Insertion of left-sided dual-lumen tunneled central venous catheter, with tip in the expected location of the SVC. Plan: The catheter may be used immediately. PROCEDURE SUMMARY: - Venous access with ultrasound guidance - Tunneled central venous catheter insertion with fluoroscopic guidance - Additional procedure(s): None PROCEDURE DETAILS: Pre-procedure Consent: Informed consent for the procedure including risks, benefits and alternatives was obtained and time-out was performed prior to the procedure. Preparation (MIPS): The site was prepared and draped using all elements of maximal sterile barrier technique including sterile gloves, sterile gown, cap, mask, large sterile sheet, sterile ultrasound probe cover, hand hygiene and cutaneous antisepsis with 2% chlorhexidine. Medical reason for site preparation exception (MIPS): Not applicable Anesthesia/sedation Level of anesthesia/sedation: Moderate sedation (conscious sedation) Anesthesia/sedation administered by: Independent trained observer under attending supervision with continuous monitoring of the patient?s level of consciousness and physiologic status Total intra-service sedation time (minutes): 30 Access Local anesthesia was administered. The vessel was sonographically evaluated and determined to be patent. Real time ultrasound was used to visualize needle entry into the vessel and a permanent image was stored. Vein accessed: Internal jugular vein Access technique: Micropuncture set with 21 gauge needle Catheter placement An incision was made near the venous access site and the catheter was tunneled subcutaneously to the venous access site and trimmed to appropriate length. The catheter was advanced via a peel-away sheath into the vein under fluoroscopic guidance. Catheter tip location was fluoroscopically verified and a permanent image was stored. Catheter placed: Leap.itcomp Catheter size ([place]): 5 Catheter flush: Normal saline Closure A sterile dressing was applied. Access site closure technique: Tissue adhesive Catheter securement technique: Non-absorbable suture Contrast Contrast agent: None Contrast volume (mL): NA Radiation Dose Fluoroscopy time (minutes): 0.0 Reference air kerma (mGy): 0.5 Additional Details Additional description of procedure: None Equipment details: None Specimens removed: None Estimated blood loss (mL): Less than 10 Standardized report: [email or web address] Attestation Signer name: Love Tobar MD I attest that I was present for the entire procedure. I reviewed the stored images and agree with the report as written. Signed by: Love Tobar MD on 05/17/2020 10:21 AM
== END 2020-05-16 20:39 | DRG 871 ==
LOC: ER 05-10 00:01 → ERHOLD 05-10 02:44 → MED/SURG3 05-10 02:54
PROVIDERS: ADMIT Internal Medicine; ATTEND Internal Medicine
PROC: 3E0336Z Introduction of Nutritional Substance into Peripheral Vein, Percutaneous Approach (ICD-10-PCS; 2020-05-10)
PROC: 5A1D70Z Performance of Urinary Filtration, Intermittent, Less than 6 Hours Per Day (ICD-10-PCS; principal; 2020-05-11)
PROC: 3E0336Z Introduction of Nutritional Substance into Peripheral Vein, Percutaneous Approach (ICD-10-PCS; 2020-05-11)
PROC: 0JH63XZ Insertion of Tunneled Vascular Access Device into Chest Subcutaneous Tissue and Fascia, Percutaneous Approach (ICD-10-PCS; 2020-05-13)
PROC: 02HV33Z Insertion of Infusion Device into Superior Vena Cava, Percutaneous Approach (ICD-10-PCS; 2020-05-13)
PROC: 30243N1 Transfusion of Nonautologous Red Blood Cells into Central Vein, Percutaneous Approach (ICD-10-PCS; 2020-05-13)
DX: A41.9 Sepsis, unspecified organism (principal); U07.1 COVID-19; L89.153 Pressure ulcer of sacral region, stage 3; G93.41 Metabolic encephalopathy; N18.6 End stage renal disease; J12.89 Other viral pneumonia; J69.0 Pneumonitis due to inhalation of food and vomit; I12.0 Hypertensive chronic kidney disease with stage 5 chronic kidney disease or end stage renal disease; N39.0 Urinary tract infection, site not specified; Z16.22 Resistance to vancomycin related antibiotics; I69.359 Hemiplegia and hemiparesis following cerebral infarction affecting unspecified side; E46 Unspecified protein-calorie malnutrition; R64 Cachexia; E11.22 Type 2 diabetes mellitus with diabetic chronic kidney disease; E86.0 Dehydration; Z99.2 Dependence on renal dialysis; Z79.4 Long term (current) use of insulin; I69.320 Aphasia following cerebral infarction; B95.2 Enterococcus as the cause of diseases classified elsewhere; L89.892 Pressure ulcer of other site, stage 2; E03.9 Hypothyroidism, unspecified; E88.09 Other disorders of plasma-protein metabolism, not elsewhere classified; M24.562 Contracture, left knee; M24.561 Contracture, right knee; D63.8 Anemia in other chronic diseases classified elsewhere; Z74.01 Bed confinement status; D50.0 Iron deficiency anemia secondary to blood loss (chronic); Z66 Do not resuscitate; Z68.22 Body mass index [BMI] 22.0-22.9, adult; R13.12 Dysphagia, oropharyngeal phase; Z68.23 Body mass index [BMI] 23.0-23.9, adult
CPT/HCPCS: 36415; 36558; 70551; 71045; 74470; 76937; 77001; 80048; 80053; 81001; 82465; 82550; 82553; 82948; 83090; 83605; 84484; 85014; 85018; 85025; 85610; 86850; 86900; 86920; 87040; 87086; 87186; 87340; 90962; 93005; 93306; 96361; 96366; 96372; 97139; 99284; J0360; J0456; J0696; J1644; J2001; J2020; J2250; J3010; J7030; J7040; J7050; P9016; U0002